=== PATIENT | female | born 1945 | race Caucasian/White ===

== ENCOUNTER 2021-11-13 05:23 | Inpatient (IN) | payer MEDICARE, MEDICAID, SELFPAY ==
[2021-11-13] VITALS (33 sets, daily range): BP systolic 97–195; BP diastolic 50–104; PULSE 64–99; RESP 10–22; TEMP 35.6–36.9; O2SAT 90–100; BMI 43.3
--- NOTE | 2021-11-13 05:24 | DI.RAD.S_ITS ---
PROCEDURE: XR HIP W PEL IF DONE RT 2V INDICATIONS: pain after fall TECHNIQUE: AP pelvis with lateral view(s) of the right hip(s). COMPARISON: None. FINDINGS: Bones: Comminuted, displaced proximal right femur intertrochanteric fracture which is in varus angulation. Patient is status post ORIF of left femur fracture. Pelvic ring appears intact. No suspicious bony lesions. Soft tissues: The visualized bowel gas pattern is normal. No suspicious soft tissue calcifications. IMPRESSION: Intertrochanteric right femur fracture. Dictated by: Isabel Kwok MD, PhD on 11/13/2021 at 9:34 Approved by: Isabel Kwok MD, PhD on 11/13/2021 at 9:35
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
[2021-11-13] MEDS: MORPHINE 4 MG/ML INJ IV (06:32)
[2021-11-13] MEDS: SODIUM CHLORIDE 0.9% 1,000 ML 125 ML IV ×3 (06:32→23:19)
[2021-11-13 06:33] LABS: Add Manual Diff / Slide Review NO; Basophils Absolute Auto 100 /uL (0-100); Basophils Percent Auto 0.6 % (0-2); Eosinophils Absolute Auto 200 /uL (0-450); Eosinophils Percent Auto 1.9 % (2-4); Hematocrit 38.7 % (36-46); Hemoglobin 12.5 g/dL (12.0-16.0); Lymphocytes Absolute Auto 1400 /uL (1100-4500); Lymphocytes Percent Auto 12.9 % (25-40); Mean Corpuscular HGB Conc 32.4 % (30-36); Mean Corpuscular Hemoglobin 25.6 PG (26-34); Mean Corpuscular Volume 78.9 fL (80-100); Monocytes Absolute Auto 600 /uL (0-900); Monocytes Percent Auto 5.8 % (3-14); Neutrophils Absolute Auto 8500 /uL (1500-7000); Neutrophils Percent Auto 78.8 % (50-75); Platelet Count 197 X10^3/uL (150-400); Red Cell Distribution Width 16.2 % (11.6-14.8); White Blood Cell Count 10.8 X10^3/uL (4.5-11.0)
[2021-11-13 06:37] LABS: INR 1.1 (0.9-1.3); Prothrombin Time 11.9 SECONDS (10.1-12.7)
[2021-11-13 06:40] LABS: PTT Partial Thromboplastin Tim 32 SECONDS (26.4-36.2)
[2021-11-13 06:47] LABS: BUN Creatinine Ratio 35.3 (6-22); Blood Urea Nitrogen 30 mg/dL (7-17); Calcium 9.8 mg/dL (8.4-10.2); Carbon Dioxide 30 mmol/L (22-32); Chloride 101 mmol/L (98-107); Estimated Glomerular Filt Rate > 60.0 mL/min (>60); Glucose 166 mg/dL (80-110); Sodium 136 mmol/L (137-145)
[2021-11-13 06:53] LABS: HEMOLYSIS 110 (0-50)
[2021-11-13 06:54] LABS: Potassium 4.6 mmol/L (3.4-5.1)
[2021-11-13] MEDS: MORPHINE 2 MG/ML INJ IV ×3 (08:17→14:18)
[2021-11-13 08:37] LABS: COVID19 -Nasal RAPID Negative (Negative)
[2021-11-13 08:49] LABS: Appearance Urine UA CLEAR; Bilirubin Urine UA NEGATIVE (NEGATIVE); Color Urine UA YELLOW; Glucose Urine UA NEGATIVE (Negative); Ketones Urine UA NEGATIVE (NEGATIVE); Leukocyte Esterase Urine UA NEGATIVE (NEGATIVE); Nitrite Urine UA NEGATIVE (Negative); Occult Blood Urine UA TRACE-INTACT (Negative); Protein Urine UA 1+ (Negative); Specific Gravity Urine UA 1.015 (1.000-1.035); Urobilinogen Urine UA 0.2 E.U./dL (0.2)
[2021-11-13 08:57] LABS: Bacteria Urine None Seen; Culture Indicated Urine Cult Not Indicated; RBC Urine 0-1/HPF (0-5/HPF); Squamous Epithelial Cell Urine 0-1 /HPF (0-5/HPF); WBC Urine 0-1/HPF (0-5/HPF)
[2021-11-13 08:59] LABS: Hemoglobin A1C% w Est Avg Glu 9.1 % (4.0-6.0)
--- NOTE | 2021-11-13 10:42 | PM.CN ---
History of Present Illness Consult details Date Patient Seen: 11/13/21 Time Patient Seen: 07:10 Chief complaint: MECHANICAL FALL Reason for consult: Ground level fall right hip fracture Requesting provider: Simone Jackson Narrative: Patient is a 76-year-old female with insulin-dependent diabetes sustained a ground level fall at home early this morning when she came out of her room was startled and fell backwards onto her right hip. She lives on the [facility] and typically gets her care at [facility] they did not have orthopedic coverage so she was brought to [facility]. Last hemoglobin A1c is 7.7. She lives at home with her who is 92 and requires his own home health assistance aids. She has been ambulating with a walker. She had a left intertrochanteric hip fracture fixed with a cephalomedullary nail in 2019 and went to rehab for short period afterwards. States she was getting ready to wean from the walker to a cane. She has no personal or family history of blood clots. She denies any shortness of breath chest pain nausea vomiting or loss of consciousness. She does state she is getting the start of the cellulitis on her left leg that she was planning to go to the walk-in clinic for. Meds Home Medications and Allergies Allergies Allergy/AdvReac Type Severity Reaction Status Date / Time No Known Drug Allergies Allergy Verified 11/13/21 09:37 Review of Systems Review of Systems Narrative: History diabetes requires insulin. Complaints of start of left leg cellulitis eye she has had previously. Denies chest pain denies shortness of breath denies history of blood clots or hypercoagulability. Review of systems otherwise negative. Does use a walker at baseline ROS: Yes All systems reviewed with the patient and are negative except as otherwise documented Exam Vital Signs (past 8 hours): - 11/13/21 05:24 11/13/21 05:32 11/13/21 06:53 Temperature 97.6 F Pulse Rate 72 74 Respiratory Rate 18 Blood Pressure 193/98 H Pulse Oximetry 98 94 96 11/13/21 06:54 11/13/21 07:00 11/13/21 07:30 Temperature Pulse Rate 94 H 90 85 Respiratory Rate 22 Blood Pressure 195/83 H 187/81 H Pulse Oximetry 96 94 96 11/13/21 07:31 11/13/21 08:00 11/13/21 08:01 Temperature Pulse Rate 90 77 82 Respiratory Rate Blood Pressure 166/79 H 155/73 H Pulse Oximetry 96 92 94 11/13/21 08:30 11/13/21 08:31 11/13/21 10:30 Temperature 97.5 F L Pulse Rate 97 H 97 H 97 H Respiratory Rate 22 16 Blood Pressure 173/90 H 151/74 H Pulse Oximetry 94 95 94 Oxygen Delivery Method Room Air Oxygen Flow Rate 0 Narrative Exam Narrative: General exam alert oriented female no acute distress BMI 43 HEENT exam normocephalic atraumatic Respiratory exam unlabored on room air. Lungs are clear to auscultation bilaterally Heart regular rate rhythm Musculoskeletal exam moves bilateral upper extremities full range of motion no tenderness to palpation. Right lower extremity is externally rotated and shortened demonstrates dorsiflexion plantar flexion. Calf and thigh are soft. Palpable dorsalis pedis pulse. Some venous stasis skin changes noted. Left lower extremity normal alignment. Venous stasis. Palpable dorsalis pedis pulse. Two venous stasis ulcerations with some erythema on the left lower extremity. Calf is soft Const General: cooperative Objective Imaging AP pelvis and right lateral hip x-ray: My impression: Right intertrochanteric hip fracture. Left hip demonstrates hardware consistent with previous fracture with cephalomedullary nail implant Labs Result Diagrams: 11/13/21 06:10 11/13/21 06:10 Labs: Laboratory Results - last 24 hr 11/13/21 11/13/21 11/13/21 06:10 06:10 06:10 WBC 10.8 RBC 4.90 Hgb 12.5 Hct 38.7 MCV 78.9 L MCH 25.6 L MCHC 32.4 RDW 16.2 H Plt Count 197 Neut % (Auto) 78.8 H Lymph % (Auto) 12.9 L [place] % (Auto) 5.8 Eos % (Auto) 1.9 L Baso % (Auto) 0.6 Neut # (Auto) 8500 H Lymph # (Auto) 1400 [place] # (Auto) 600 Eos # (Auto) 200 Baso # (Auto) 100 PT 11.9 INR 1.1 APTT 32 Sodium 136 L Potassium 4.6 Chloride 101 Carbon Dioxide 30 BUN 30 H Creatinine 0.85 Estimated GFR > 60.0 BUN/Creatinine Ratio 35.3 H Glucose 166 H Hemoglobin A1c Calcium 9.8 Urine Color Urine Appearance Urine pH Ur Specific [place] Urine Protein Urine Glucose (UA) Urine Ketones Urine Occult Blood Urine Nitrate Urine Bilirubin Urine Urobilinogen Ur Leukocyte Esterase Urine RBC Urine WBC Ur Squamous Epith Cells Urine Bacteria Ur Culture Indicated? SARS-CoV-2 (PCR) 11/13/21 11/13/21 11/13/21 06:10 07:41 08:44 WBC RBC Hgb Hct MCV MCH MCHC RDW Plt Count Neut % (Auto) Lymph % (Auto) [place] % (Auto) Eos % (Auto) Baso % (Auto) Neut # (Auto) Lymph # (Auto) [place] # (Auto) Eos # (Auto) Baso # (Auto) PT INR APTT Sodium Potassium Chloride Carbon Dioxide BUN Creatinine Estimated GFR BUN/Creatinine Ratio Glucose Hemoglobin A1c 9.1 H Calcium Urine Color Yellow Urine Appearance Clear Urine pH 7.0 Ur Specific [place] 1.015 Urine Protein 1+ H Urine Glucose (UA) Negative Urine Ketones Negative Urine Occult Blood Trace-intact Urine Nitrate Negative Urine Bilirubin Negative Urine Urobilinogen 0.2 Ur Leukocyte Esterase Negative Urine RBC 0-1/hpf Urine WBC 0-1/hpf Ur Squamous Epith Cells 0-1 /hpf Urine Bacteria None seen Ur Culture Indicated? Cult not indicated SARS-CoV-2 (PCR) Negative [facility] Medical History Hypertension Insulin dependent diabetes mellitus Neuropathy Comment: Insulin-dependent diabetes. History of left intertrochanteric hip fracture status post cephalomedullary nail 2020. Social History marital status: details: Lives at home with who is 92 and requires nursing care. lives independently: Yes caregiver/support person: No Tobacco & Substance Use Smoking Status: Never smoker substance use type: does not use Assessment & Plan Assessment and plan (1) Closed hip fracture: Status: Acute Plan Patient is a 76-year-old female with a displaced right intertrochanteric hip fracture. She has been indicated for surgery to reduce the fracture stabilize it and allow early mobilization and avoid the comorbidities associated with prolonged bed rest. The risks and benefits of the procedure have been discussed with the patient even opportunity to ask questions. The risks of surgery include but are not limited to infection, malunion, nonunion, persistence of pain, damage to nerves and blood vessels, posttraumatic arthritis, DVT, PE, cardiopulmonary complications and . The patient expressed a thorough understanding of the risks and benefits of surgery and has elected to proceed. Consent was signed. We discussed specific risks of immobility, bed sores, pneumonia, blood clots, pulmonary embolism and risks with a general anesthetic, myocardial infarction, stroke, paralysis, . We discussed blood loss anemia and possible requirements for blood transfusions depending on symptoms. Patient understands and agrees with the plan.\ Will be NPO. Plan for cephalomedullary nail right intertrochanteric hip fracture today when the OR is available. She will likely require fci placement postoperatively as she require this with the left-sided hip fracture. She will be weightbear as tolerated on her implant postoperatively. She does not have any allergies to antibiotics will get weight based Ancef preoperatively. COVID-19 COVID-19 status: Negative Result date/Date tested (Pos, Neg/Pending): 11/13/21 Time Spent With Patient Time with patient: less than 30 minutes Critical Care time: I spent a total of [] minutes of critical care time on this patient's care today; this time is exclusive of procedural time.
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
[2021-11-13] MEDS: LACTATED RINGERS 1,000 ML 42 ML IV ×2 (12:20→17:38)
[2021-11-13] MEDS: LORazepam 2 MG/ML INJ 0.5 MG IV (15:35)
[2021-11-13] MEDS: GABAPENTIN 300 MG CAPSULE PO (16:14)
[2021-11-13] MEDS: INSULIN LISPRO 100 UNIT/ML 3ML VIAL SUBCUT ×2 (16:22→18:47)
[2021-11-13] MEDS: CEFAZOLIN 2 GM/20 ML SYRINGE 3 GM IV (16:27)
[2021-11-13] MEDS: TRANEXAMIC ACID 1,000 MG VIAL 2000 MG INJ ×2 (16:29→17:49)
--- NOTE | 2021-11-13 16:44 | SUR.OPER ---
Supine on padded [place] table with bilateral legs secured in padded positioning boots and suspended in positioning spars, operative leg in traction per surgeon. Head on one pillow. Arm on non-operative side secured on padded armboard <90 degrees abduction. Arm on operative side padded and resting across chest then secured with tape over sheet. Padded perineal post in place per surgeon.
--- NOTE | 2021-11-13 17:00 | DI.RAD.S_ITS ---
PROCEDURE: XR HIP W PEL IF DONE RT 2V INDICATIONS: RIGHT HIP FX TECHNIQUE: AP pelvis with lateral view(s) of the right hip(s). COMPARISON: [facility], , XR HIP W PEL IF DONE RT 2V, 11/13/2021, 5:21. FINDINGS: Bones: ORIF of the bilateral femoral necks and shafts. Pelvic ring appears intact. No suspicious bony lesions. Soft tissues: The visualized bowel gas pattern is normal. No suspicious soft tissue calcifications. IMPRESSION: Postsurgical sequelae. Dictated by: Jude Limon M.D. on 11/13/2021 at 19:00 Approved by: Jude Limon M.D. on 11/13/2021 at 19:00
[2021-11-13] MEDS: BUPIVACAINE 0.25% (PF) 30 ML, EPINEPHrine 0.15 MG INJ (17:02)
--- NOTE | 2021-11-13 18:11 | PC.NURSE ---
Pt arrived from ED this a.m. at 1000 a.m. She is A&Ox3. Her SBP is elevated as she reports pain level elevated to RLE and R hip. Pt is given PRN morphine with minimal effect. Noted she has scattered bruising to her thighs and back. She has an abrasion covered with a bandaid to L outer gaspar, erythema surrounding. Toes are dusky brown color and she reports she has neuropathy with duller sensation and decreased circulation to bilateral lower extremities. She has a history of DM, and BG prior to noon is 169. She is NPO. LR at 42 ml/hr. Hospitalist at bedside evaluating patient, EKG completed at baseline (abnormal QRS per baseline). She is asymptomatic of palpitations, SOB or chestpain. Pt given 0.5mg ativan for c/o of leg spasms and pain with good effect. She is taken to pre op via bed at 1545.
--- NOTE | 2021-11-13 18:59 | PM.OP.1 ---
Operative Date/Time/Diagnoses Date of procedure: 11/13/21 Time of procedure: 18:59 Pre-op diagnosis: Right intertrochanteric hip fracture Morbid obesity BMI 43 Insulin-dependent diabetes Post-op diagnosis: same Procedure & Clinicians Procedure: Fixation of right intertrochanteric hip fracture with cephalomedullary nail CPT code 30432 Same procedure as scheduled: Yes Indications: Patient is a 76-year-old female with insulin-dependent diabetes that fell early this morning with a ground level fall onto her right hip she was unable to ambulate she was taken by EMS to [facility] displaced right intertrochanteric hip fracture was identified. She was admitted for surgery. She had a left intertrochanteric hip fracture fixed with a intramedullary yael in 2019 at an outside hospital. She denies any loss of consciousness shortness of breath or chest pain. She normally ambulates with a walker. She was indicated for fixation of her intertrochanteric hip fracture on the right side to reduce the comorbidities associated with prolonged immobility. The risks and benefits of the procedure have been discussed with the patient even opportunity to ask questions. The risks of surgery include but are not limited to infection, malunion, nonunion, persistence of pain, damage to nerves and blood vessels, need for transfusion, posttraumatic arthritis, DVT, PE, cardiopulmonary complications and . The patient expressed a thorough understanding of the risks and benefits of surgery and has elected to proceed. Consent was signed. Surgeon: Alberta Bonilla Click Yes if Unassisted: Yes Anesthesia Type: General Operative Notes Findings: Displaced intertrochanteric hip fracture, unstable Closure Type: primary Specimen(s): none sent Prosthetic devices, grafts, tissues, transplants, or devices: Carias and nephew inter mann nail 13mm x 18cm 110 mm lag screw and 105 mm compression screw 40 mm locking screw Estimated Blood Loss (mL): 150 Blood products transfused: none Tourniquet time (min): 0 Procedure in detail: Procedure cephalomedullary nail intertrochanteric hip fracture the CPT code 67183 Side: Right Implant Carias and Nephew 13 x 18 cm cephalomedullary nail intertan Procedure: The patient was seen and the site of surgery was marked in the preoperative area. This was the right hip. Patient was brought to the operating room and placed on the operative table and general anesthesia was administered. The patient was positioned on the fracture table in standard fashion with a well-padded boots and a padded peroneal post. An SCD was on the contralateral leg. A formal time-out was called to confirm the patient's side and site of surgery administration of preoperative antibiotics. All were in agreement. The operative leg was then gently manipulated under fluoroscopic guidance to obtain a closed reduction in near anatomic alignment. At this point the operative extremity was prepped and draped in the standard sterile manner. The starting point was marked out using fluoroscopic guidance and marked on the skin. A guidewire was placed percutaneously and the starting point was obtained. Incision was made over the guidewire. An opening drill was inserted to the level of the lesser trochanter. The opening Reamer and guidewire were then removed. Ball-tipped guidewire was used to pass distally. A 14 mm Reamer was then used in the canal. The 18 Cm cephalomedullary nail was selected. The 13 x 18 cm nail was then slid into the canal. The nail was advanced to the proper depth and rotation. The guide for the cephalomedullary screw was then inserted into the external handle. An incision was made and the guide was placed down to the bone. A guidewire was placed to the proper depth into the femoral head and this was confirmed on AP and lateral imaging. The tip apex distance was evaluated and appropriate. This was measured. Next the outer cortex was drilled for the interlocking screw and the anti rotation bar was placed. The cephalomedullary screw length was then measured off the drill again. A 110 mm lag screw was selected and the corresponding interlocking compression screw. A guidewire was then over drilled and the lag screw placed. The anti rotation bar was removed and then the locking compression screws were placed and confirmed on biplanar fluoroscopy. The integrated compression screw was tightened. Traction was released. was turned to the distal interlock. This was placed with the guide in the standard technique. AP and lateral images were captured in the or confirming alignment hardware placement. Wounds were irrigated and closed in layers with 0 Vicryl in the deep fascia. 2- 0 in the subcutaneous tissue and faby in the skin. Sterile dressings were applied. There no immediate complications. Surgical counts were correct. The patient tolerated the procedure well was taken to recovery room for formal radiographs. Postoperative plan. Weightbear as tolerated to the surgical extremity. Work with physical therapy and occupational therapy. Discharge by primary team. Likely longterm. Monitor hemoglobin and hematocrit postoperatively may require transfusion if needed. Encourage incentive spirometry. SCDs and Lovenox for DVT prophylaxis. Recommend Lovenox 4 weeks for hip fracture. Follow-up scheduled [facility] in 2 weeks for wound check and repeat x-rays. Keep dressing clean dry and intact. May change of saturated. Complications: none Post-operative Condition: stable Disposition: PACU Plan for aftercare: Weightbear as tolerated right lower extremity. Lovenox for DVT prophylaxis x4 weeks unless mobilizing well then could consider aspirin. Two doses and Ancef postop
--- NOTE | 2021-11-13 19:03 | SUR.PHASEI ---
11/13/2190-0403-Jadcphv sleepy, in no pain or distress . has harsh moist cough. suctioned orally prn. vss. oxygen at 2l nc. sats 97%. denies pain or nausea. tolerated ice chips. dressing rt hip cdi x 2 sites. 2 + Dp pulse rt foot and +motion/sensation/warmth and color pink. has color demarcations of brown on feet. nods no to any numb/tingling in toes. anesthesia here and aware of lungs sounds,cough. States expelled alot of thick mucous via suction when extubating. no resp. treatment ordered. will pass on to push pulmonary tolietring on floor. Floor recalled at 7 pm-shift change to call back for report.
--- NOTE | 2021-11-13 19:30 | SUR.PHASEI ---
11/13/20-1919-To room by bed with oxygen at 2 liters.no belongings. breathing better-no moist rhonchi heard.. met criteria. unable to give report by phone. 1924-Met RN at bedside in room and handoff report done.
[2021-11-13] MEDS: INSULIN GLARGINE 100 UNIT/ML 3ML PEN 55 UNIT SUBCUT (22:03)
[2021-11-14] VITALS (16 sets, daily range): BP systolic 120–145; BP diastolic 55–80; PULSE 92–105; RESP 15–19; TEMP 35.9–36.7; O2SAT 92–100
[2021-11-14] MEDS: CEFAZOLIN 2 GM/20 ML SYRINGE IV ×2 (00:53→08:12)
[2021-11-14] MEDS: OXYCODONE IR 5 MG TABLET PO ×4 (05:11→19:01)
[2021-11-14 05:22] LABS: Add Manual Diff / Slide Review NO; Basophils Absolute Auto 0 /uL (0-100); Basophils Percent Auto 0.5 % (0-2); Eosinophils Absolute Auto 100 /uL (0-450); Eosinophils Percent Auto 1.4 % (2-4); Hematocrit 32.5 % (36-46); Hemoglobin 10.4 g/dL (12.0-16.0); Lymphocytes Absolute Auto 1600 /uL (1100-4500); Lymphocytes Percent Auto 16.7 % (25-40); Mean Corpuscular HGB Conc 31.8 % (30-36); Mean Corpuscular Hemoglobin 25.5 PG (26-34); Monocytes Absolute Auto 900 /uL (0-900); Monocytes Percent Auto 9.9 % (3-14); Neutrophils Absolute Auto 6700 /uL (1500-7000); Neutrophils Percent Auto 71.5 % (50-75); Platelet Count 146 X10^3/uL (150-400); Red Blood Cell Count 4.07 X10^6/uL (4.0-5.2); Red Cell Distribution Width 16.3 % (11.6-14.8); White Blood Cell Count 9.4 X10^3/uL (4.5-11.0)
[2021-11-14 05:28] LABS: BUN Creatinine Ratio 28.9 (6-22); Blood Urea Nitrogen 22 mg/dL (7-17); Calcium 8.7 mg/dL (8.4-10.2); Carbon Dioxide 31 mmol/L (22-32); Chloride 105 mmol/L (98-107); Estimated Glomerular Filt Rate > 60.0 mL/min (>60); Glucose 178 mg/dL (80-110); HEMOLYSIS < 15 (0-50); Potassium 4.5 mmol/L (3.4-5.1); Sodium 137 mmol/L (137-145)
[2021-11-14 05:38] LABS: Magnesium 1.6 mg/dL (1.6-2.3)
[2021-11-14 05:59] LABS: TSH w/ Reflex to FT4 1.06 uIU/mL (0.47-4.68)
[2021-11-14] MEDS: ACETAMINOPHEN 325 MG TABLET 975 MG PO ×3 (08:11→21:00)
[2021-11-14] MEDS: ENOXAPARIN 40 MG/0.4 ML SYRINGE SUBCUT (08:12)
[2021-11-14] MEDS: DOCUSATE 100 MG CAPSULE PO ×2 (08:12→21:00)
[2021-11-14] MEDS: INSULIN LISPRO 100 UNIT/ML 3ML VIAL SUBCUT ×4 (08:13→21:07)
--- NOTE | 2021-11-14 09:29 | P.PN_ITS ---
Subjective Subjective Date Patient Seen: 11/14/21 Time Patient Seen: 09:29 Interval history: Right hip pain is mild. Denies fever or chills. No nausea or vomiting. Patient lives at home with her 92-year-old . Patient states that her has a caregiver part-time. Patient states that the caregiver for her also typically helped her out quite a bit as well. Exam Vital Signs (past 8 hours): - 11/14/21 02:12 11/14/21 03:12 11/14/21 05:26 Temperature 96.6 F L Pulse Rate 97 H 92 H Respiratory Rate 16 16 Blood Pressure 131/75 Pulse Oximetry 100 99 95 11/14/21 07:25 11/14/21 09:07 Temperature 97.6 F Pulse Rate 102 H Respiratory Rate 16 Blood Pressure 135/80 Pulse Oximetry 94 92 Oxygen Delivery Method Room Air Oxygen Flow Rate 0 Narrative Exam Narrative: 76-year-old female resting comfortably in bed in no apparent distress. Right hip dressings are Clean, dry, intact.. Motor functions intact distal bilateral lower extremities. Patient has diminished sensation to light touch bilateral lower extremities secondary to peripheral neuropathy. Objective Labs Result Diagrams: 11/14/21 04:55 11/14/21 04:55 Labs: Laboratory Results - last 24 hr 11/14/21 11/14/21 11/14/21 04:55 04:55 04:55 WBC 9.4 RBC 4.07 Hgb 10.4 L Hct 32.5 L MCV 80.0 MCH 25.5 L MCHC 31.8 RDW 16.3 H Plt Count 146 L Neut % (Auto) 71.5 Lymph % (Auto) 16.7 L [place] % (Auto) 9.9 Eos % (Auto) 1.4 L Baso % (Auto) 0.5 Neut # (Auto) 6700 Lymph # (Auto) 1600 [place] # (Auto) 900 Eos # (Auto) 100 Baso # (Auto) 0 Sodium 137 Potassium 4.5 Chloride 105 Carbon Dioxide 31 BUN 22 H Creatinine 0.76 Estimated GFR > 60.0 BUN/Creatinine Ratio 28.9 H Glucose 178 H Calcium 8.7 Magnesium 1.6 TSH 11/14/21 04:55 WBC RBC Hgb Hct MCV MCH MCHC RDW Plt Count Neut % (Auto) Lymph % (Auto) [place] % (Auto) Eos % (Auto) Baso % (Auto) Neut # (Auto) Lymph # (Auto) [place] # (Auto) Eos # (Auto) Baso # (Auto) Sodium Potassium Chloride Carbon Dioxide BUN Creatinine Estimated GFR BUN/Creatinine Ratio Glucose Calcium Magnesium TSH 1.06 [facility] Medical History Hypertension Insulin dependent diabetes mellitus Neuropathy Surgical History Status post-operative repair of closed fracture of left hip Family History Brother Diabetes mellitus Mother Diabetes mellitus Social History marital status: details: Lives at home with who is 89 and requires nursing care. household members: spouse lives independently: Yes caregiver/support person: No Smoking Status: Never smoker alcohol intake: never substance use type: does not use Assessment & Plan Post-op Postoperative Procedures: Procedures Operation Date: 11/13/21 15:45 Actual Procedure Side Surgeon p RAMSES intertrochanter hip fx Right Alberta Bonilla MD Postoperative day: 1 Postoperative status: doing well Postoperative status narrative: Stable status post fixation of right intertrochanteric hip fracture with cephalomedullary nail Postoperative plan narrative: Mobilize with physical therapy Weightbear as tolerated right lower extremity. Lovenox for DVT prophylaxis x4 weeks unless mobilizing well then could consider aspirin. Two doses and Ancef postop Disposition likely will need senior care facility. Quality VTE Deep Vein Thrombosis/Pulmonary Embolism Present on Admission: No
--- NOTE | 2021-11-14 10:36 | PT.IIE ---
Current Diagnoses Fracture of unspecified part of neck of unspecified femur, initial encounter for closed fracture (11/13/21) Surgery Performed Operation Date: 11/13/21 15:45 Actual Procedures p IMN intertrochanter hip fx(Right) - Alberta Bonilla MD Medical History (Last Reviewed 11/14/21 @ 09:30 by Jesus Ruffin PA-C) Hypertension Insulin dependent diabetes mellitus Neuropathy Physical Therapy Inpatient Evaluation/Re-Eval M1 PT/OT-IP Prior Functional Status Start: 11/14/21 13:04 Freq: NEEDED Status: Active Protocol: Document 11/14/21 10:36 AB (Rec: 11/14/21 13:15 AB [email or web address]) Medical Review Prior Functional Status Medical History Reviewed Yes Communication able to make needs known Mobility and Gait pt stated that she is modified independent with all mobilities and ambulation using 4WW Social History Household Members spouse Living Arrangements House Number of Floors (Floors) One Floor Number of Stairs To Enter/Railing? ramp to enter Home Environment Standard Height Toilet,Walk in Shower Home Equipment Four Wheel Walker,Bedside Commode,Shower Seat with Backrest,Hand Held Shower,Grab Bars In Shower Additional Social History Comment stated that her spouse has dementia and there is a caregiver that comes in to assist her spouse but when caregiver is not around, pt assists pt at home. M2 PT-IP Current Condition Start: 11/14/21 13:04 Freq: NEEDED Status: Active Protocol: Document 11/14/21 10:36 AB (Rec: 11/14/21 13:15 AB [email or web address]) Physical Therapy Current Condition Current Condition Evaluation Date 11/14/21 Treatment Diagnosis R femur fx s/p nailing; difficulty in walking Onset Date 11/13/21 M3 PT-IP Subjective Start: 11/14/21 13:04 Freq: NEEDED Status: Active Protocol: Document 11/14/21 10:36 AB (Rec: 11/14/21 13:15 AB [email or web address]) Subjective Physical Therapy Visit Type Type Initial Evaluation Visit Start Time 10:36 Visit Stop Time 11:30 Total Visit Minutes 54 Number of BRIDGE SAW OPERATOR Visits 0 Therapy Pain Assessment Pain When Pain Assessed At Rest Pain Present Pain Present Pain Reported Location Right Hip Scale Used pain scale not stated Pain Management Techniques Distraction,Modification of Treatment,Re-positioning, Timing of Activity with Medications M4 PT-IP Mobility and Gait Start: 11/14/21 13:04 Freq: NEEDED Status: Active Protocol: Document 11/14/21 10:36 AB (Rec: 11/14/21 13:15 AB [email or web address]) PT-Bed Mobility Assessment Supine to Sit Supine to Sit Maximum Assistance,2 Person Assistance,Head of Bed Elevated,Bedrails Scooting Scooting to Edge of Bed Dependent PT-Transfer Assessment Sit to and From Stand Sit to and from Stand Maximum Assistance,2 Person Assistance,Use of Upper Extremities Equipment Transfer Assistive Device Gait Belt,Front Wheeled Walker Orthotic/Prosthetic Devices or Brace: No Transfers Transfer Destination Chair Transfer Technique Stand Pivot Transfer Ability Level of Assist Maximum Assistance,2 Person Assistance,Use of Upper Extremities Comments Mobility Comments pt completed supine to sit max A x 2 and max cues with HOB elevated. pt tends to stiffen RLE making it harder to move and assist pt. Pt also has some confusion and requires repeated cues for all tasks. pt requiring mod to max for sitting on EOB. total A for scooting to EOB. completed sit to stand x 2 attempts max A x 2 and max cues. only tolerated ~ 5 sec of standing on first attempt. completed sit to stand gain max A x 2 and instructed to transfer to chair using FWW. required max A x 2 to pivot to chair using FWW. midway of transfer, pt just let go of walker and plopped herself on side of recliner. pt with decrease safety awareness. total A for positioning on chair. call light and table placed within reach. PT-Balance Assessment Sitting Balance and Reactions Static Sitting Balance Ability Fair Dynamic Sitting Balance Ability Poor Standing Balance and Reactions Static Standing Balance Ability Poor Dynamic Standing Balance Ability Poor Device Used FWW M5 PT-IP Objective Assessments Start: 11/14/21 13:04 Freq: NEEDED Status: Active Protocol: Document 11/14/21 10:36 AB (Rec: 11/14/21 13:15 AB [email or web address]) Orientation Orientation/Cognition Level of Alertness Confusional State Orientation Name Safety Awareness Decreased Safety Awareness Memory Description Short Term Impaired Gross Range of Motion Lower Extremity ROM Impairments pt with increase LE guarding with PROM Strength Lower Extremity Strength Assessment Bilaterally Impaired Comments Strength Comments RLE: 3-/5 LLE:3-/5 Coordination Assessment Gross Coordination Gross Coordination WNL Sensation Assessment Sensation Gross Sensation Right LE Impaired,Left LE Impaired Sensation Description Numbness,Tingling Comments Sensation Comments has BLE neuropathy Muscle Tone Muscle Tone WNL Yes M6 PT-IP Treatment Start: 11/14/21 13:04 Freq: NEEDED Status: Active Protocol: Document 11/14/21 10:36 AB (Rec: 11/14/21 13:15 AB [email or web address]) Physical Therapy Treatment Exercises Exercises Heel Slides Education Education Provided Weight Bearing Status,Safety M7 PT-IP Assessment and Plan Start: 11/14/21 13:04 Freq: NEEDED Status: Active Protocol: Document 11/14/21 10:36 AB (Rec: 11/14/21 13:15 AB [email or web address]) PT Summary Assessment and Plan Potential Rehabilitation Potential Fair Status of Condition at Evaluation Evolving Summary Impairments Pain,ROM,Strength,Balance, Coordination,Sensation,Tone, Cognition,Bed Mobility, Transfers,Gait,Activity Tolerance Assessment Summary pt requiring max A x 2 to total A x 2 with mobility and unable to ambulate at this time. pt also has decrease safety awareness requiring max cues with all tasks. pt will require SNF rehab to improve strength and mobility independence. Goals Bed Mobility Goal Minimal Assistance Transfer Goal Minimal Assistance,Front Wheeled Walker Gait Goal Minimal Assistance,Front Wheel Walker Gait Distance 50 Other Goals improve bed mobility , transfers SBA using FWW improve ambulation using FWW 125 ft SBA Frequency of Treatment Frequency Of Treatment Twice a Day Treatment Plan Physical Therapy Treatment Plan Bed Mobility Training,Transfer Training,Gait Training, Therapeutic Exercise,Balance Retraining,Post Op Education, Discharge Planning,Hot or Cold Pack,Neuromuscular Re-ed, Coordination Retraining,Manual Therapy Weight Bearing Status Weight Bearing Status Weight Bear as Tolerated Allowed Weight Bearing Amount (enter % RLE WBAT or #) (%) Recommendations To Nursing Amount of Assist Needed Mechanical Lift Discharge Recommendations PT Discharge Recommendations SNF Rehab Equipment Needed for Home Before FWW if pt goes home Discharge Transportation Needs at Discharge Wheelchair/Cabulance
[2021-11-14] MEDS: MAGNESIUM CHLORIDE 64 MG TABLET 128 MG PO (10:46)
[2021-11-14] MEDS: OXYCODONE IR 5 MG TABLET 10 MG PO (10:48)
--- NOTE | 2021-11-14 11:54 | PM.PN.1 ---
Subjective Subjective Date Patient Seen: 11/14/21 Time Patient Seen: 11:54 Interval history: Pain is mild, worse with movement today. Denies chest pain, nausea, vomiting. No shortness of breath. Difficult time today with PT, jossy lift only today. Exam Vital Signs (past 8 hours): - 11/14/21 05:26 11/14/21 07:00 11/14/21 07:25 Temperature 97.6 F Pulse Rate 92 H 102 H Respiratory Rate 16 16 Blood Pressure 135/80 Pulse Oximetry 95 93 94 11/14/21 09:07 11/14/21 11:00 Temperature Pulse Rate Respiratory Rate Blood Pressure Pulse Oximetry 92 93 Oxygen Delivery Method Room Air Oxygen Flow Rate 0 Narrative Exam Narrative: GENERAL APPEARANCE: Well developed, well nourished, obese female in no acute distress. SKIN: Inspection of the skin reveals mild venous stasis disease in lower extremity, there is a bandaged area of her left leg that is chronic, without appearance of active infection. HEENT:? Normocephalic atraumatic, extraocular muscles are intact, oropharynx is clear and mucous membranes are moist, neck is supple without adenopathy NECK: Supple and symmetric. There was no thyroid enlargement, and no tenderness, or masses were felt. CHEST: Normal AP diameter and normal contour without any kyphoscoliosis.? Chest rises equal bilaterally. LUNGS: Auscultation of the lungs revealed no wheezes, rhonchi, or rales. CARDIOVASCULAR: There was a regular rate and rhythm without any murmurs, gallops, rubs. Peripheral pulses were 2+ and symmetric. ABDOMEN:? Soft, nontender, and nondistended. MUSCULOSKELETAL:? Right hip appropriately tender, dressing c/d/i. No joint effusions apparent. EXTREMITIES: No cyanosis, clubbing. NEUROLOGIC: Alert and oriented x 3. Normal affect. Slightly groggy after morphine. Strength not assessed due to pain. Reports bilateral neuropathy in lower extremities, but can feel light touch. Objective Labs Result Diagrams: 11/14/21 04:55 11/14/21 04:55 Labs: Laboratory Results - last 24 hr 11/14/21 11/14/21 11/14/21 04:55 04:55 04:55 WBC 9.4 RBC 4.07 Hgb 10.4 L Hct 32.5 L MCV 80.0 MCH 25.5 L MCHC 31.8 RDW 16.3 H Plt Count 146 L Neut % (Auto) 71.5 Lymph % (Auto) 16.7 L [place] % (Auto) 9.9 Eos % (Auto) 1.4 L Baso % (Auto) 0.5 Neut # (Auto) 6700 Lymph # (Auto) 1600 [place] # (Auto) 900 Eos # (Auto) 100 Baso # (Auto) 0 Sodium 137 Potassium 4.5 Chloride 105 Carbon Dioxide 31 BUN 22 H Creatinine 0.76 Estimated GFR > 60.0 BUN/Creatinine Ratio 28.9 H Glucose 178 H Calcium 8.7 Magnesium 1.6 TSH 11/14/21 04:55 WBC RBC Hgb Hct MCV MCH MCHC RDW Plt Count Neut % (Auto) Lymph % (Auto) [place] % (Auto) Eos % (Auto) Baso % (Auto) Neut # (Auto) Lymph # (Auto) [place] # (Auto) Eos # (Auto) Baso # (Auto) Sodium Potassium Chloride Carbon Dioxide BUN Creatinine Estimated GFR BUN/Creatinine Ratio Glucose Calcium Magnesium TSH 1.06 [facility] Medical History Hypertension Insulin dependent diabetes mellitus Neuropathy Surgical History Status post-operative repair of closed fracture of left hip Family History Brother Diabetes mellitus Mother Diabetes mellitus Social History marital status: details: Lives at home with who is 92 and requires nursing care. household members: spouse lives independently: Yes caregiver/support person: No Smoking Status: Never smoker alcohol intake: never substance use type: does not use Assessment & Plan Assessment & Plan narrative: 1. Pathologic right intertrochanteric femur fracture, acute, present on admission ?- appreciate orthopedic surgery consultation. S/p repair on 11/13/21. ?- PT / OT and pain control after surgery. 2. Type 2 diabetes, chronic, with insulin use ?- increased lantus to 60 from 55 tonight. Glucose generally around 180. Holding victoza as inpatient. ?- A1c 9%. Patient reports recently was 7.7%. ?- diabetic diet, consider post acute care nurse consultation 3. History of tachyarrhythmia ?- continue telemetry. No events thus far. 4. Hyperlipidemia ?- continue statin. 5. Chronic venous stasis 6. Obesity, BMI 43.3 ?- places patient at higher risk of surgical complications. Code: Full, surrogate decision maker she states is her son Dispo: Admitted as inpatient, likely SNF on discharge. DVT: per surgical service after OR. currently on hold COVID-19 COVID-19 status: Negative Time Spent With Patient Critical Care time: I spent a total of [] minutes of critical care time on this patient's care today; this time is exclusive of procedural time. Quality VTE Deep Vein Thrombosis/Pulmonary Embolism Present on Admission: No
[2021-11-14] MEDS: SODIUM CHLORIDE 0.9% 1,000 ML 80 ML IV (12:07)
--- NOTE | 2021-11-14 14:45 | PT.IPTN ---
Current Diagnoses Fracture of unspecified part of neck of unspecified femur, initial encounter for closed fracture (11/13/21) Surgery Performed Operation Date: 11/13/21 15:45 Actual Procedures p IMN intertrochanter hip fx(Right) - Alberta Bonilla MD Physical Therapy Treatment Note M2 PT-IP Current Condition Start: 11/14/21 13:04 Freq: NEEDED Status: Active Protocol: Document 11/14/21 10:36 AB (Rec: 11/14/21 13:15 AB [id number]) Physical Therapy Current Condition Current Condition Evaluation Date 11/14/21 Treatment Diagnosis R femur fx s/p nailing; difficulty in walking Onset Date 11/13/21 M3 PT-IP Subjective Start: 11/14/21 13:04 Freq: NEEDED Status: Active Protocol: Document 11/14/21 14:45 AB (Rec: 11/14/21 15:55 AB [email or web address]) Subjective Physical Therapy Visit Type Type Treatment Note Visit Start Time 14:45 Visit Stop Time 15:30 Total Visit Minutes 45 Number of ARMOURED CAR ESCORT Visits 0 Physical Therapy Visit Comments Patient Comments pt is requesting to go back to bed Therapy Pain Assessment Pain When Pain Assessed During Mobility Pain Present Pain Present Pain Reported Location Right Hip Scale Used pain scale not stated Pain Management Techniques Distraction,Modification of Treatment,Re-positioning, Timing of Activity with Medications M4 PT-IP Mobility and Gait Start: 11/14/21 13:04 Freq: NEEDED Status: Active Protocol: Document 11/14/21 14:45 AB (Rec: 11/14/21 15:55 AB [id number]) PT-Bed Mobility Assessment Rolling Level of Assist Maximal Assistance,2 Person Assistance Sit to Supine Sit to Supine Maximum Assistance,Total Assistance,2 Person Assistance PT-Transfer Assessment Sit to and From Stand Sit to and from Stand Maximum Assistance,2 Person Assistance,Use of Upper Extremities Equipment Transfer Assistive Device Front Wheeled Walker Orthotic/Prosthetic Devices or Brace: No Transfers Transfer Destination Bed Transfer Technique Squat Pivot Transfer Ability Level of Assist Maximum Assistance,2 Person Assistance,Use of Upper Extremities Comments Mobility Comments pt sitting on chair. requesting to go back to bed. completed sit to stand from chair max A x 2-3 requiring 2 attempts to stand. max A x 2 for standing balance using FWW . R knee tends to buckle requiring assist for stability . cued for quads sets but pt inconsistent with following directions. instructed to transfer to bed but pt unable to move LE. pt stated that she needs to sit down. max A x 2-3 for controlled descent. completed squat pivot transfer max A x 3 and max cues. max A x 2 to total A x 2 for sit to supine. positioned pt in bed. call light and table placed within reach. M5 PT-IP Objective Assessments Start: 11/14/21 13:04 Freq: NEEDED Status: Active Protocol: Document 11/14/21 10:36 AB (Rec: 11/14/21 13:15 AB [id number]) Orientation Orientation/Cognition Level of Alertness Confusional State Orientation Name Safety Awareness Decreased Safety Awareness Memory Description Short Term Impaired Gross Range of Motion Lower Extremity ROM Impairments pt with increase LE guarding with PROM Strength Lower Extremity Strength Assessment Bilaterally Impaired Comments Strength Comments RLE: 3-/5 LLE:3-/5 Coordination Assessment Gross Coordination Gross Coordination WNL Sensation Assessment Sensation Gross Sensation Right LE Impaired,Left LE Impaired Sensation Description Numbness,Tingling Comments Sensation Comments has BLE neuropathy Muscle Tone Muscle Tone WNL Yes M6 PT-IP Treatment Start: 11/14/21 13:04 Freq: NEEDED Status: Active Protocol: Document 11/14/21 14:45 AB (Rec: 11/14/21 15:55 AB [email or web address]) Physical Therapy Treatment Education Education Provided Safety M7 PT-IP Assessment and Plan Start: 11/14/21 13:04 Freq: NEEDED Status: Active Protocol: Document 11/14/21 14:45 AB (Rec: 11/14/21 15:[email or web address] Summary Assessment and Plan Potential Rehabilitation Potential Fair Summary Impairments Pain,ROM,Strength,Balance, Coordination,Sensation,Tone, Cognition,Bed Mobility, Transfers,Gait,Activity Tolerance Assessment Summary pt requiring max A x 2-3 to total A with mobility and has difficulty moving BLE to transfer or pivot. Recommending jossy lift transfers with nursing. will continue to work on strength, standing balance/tolerance and mobility. pt will require SNF rehab to improve functional mobility. Goals Bed Mobility Goal Minimal Assistance Transfer Goal Minimal Assistance,Front Wheeled Walker Gait Goal Minimal Assistance,Front Wheel Walker Gait Distance 50 Other Goals improve bed mobility , transfers SBA using FWW improve ambulation using FWW 125 ft SBA Frequency of Treatment Frequency Of Treatment Twice a Day Treatment Plan Physical Therapy Treatment Plan Bed Mobility Training,Transfer Training,Gait Training, Therapeutic Exercise,Balance Retraining,Post Op Education, Discharge Planning,Hot or Cold Pack,Neuromuscular Re-ed, Coordination Retraining,Manual Therapy Weight Bearing Status Weight Bearing Status Weight Bear as Tolerated Allowed Weight Bearing Amount (enter % RLE WBAT or #) (%) Recommendations To Nursing Amount of Assist Needed Mechanical Lift Discharge Recommendations PT Discharge Recommendations SNF Rehab Equipment Needed for Home Before FWW if pt goes home Discharge Transportation Needs at Discharge Wheelchair/Cabulance
--- NOTE | 2021-11-14 15:13 | CM.DANOTE ---
Patient is a 76 yo female who was admitted on 11/13/21 for GLF/hip fx. Pt has [facility] and [facility] for insurance and her PCP is not listed. EMR was reviewed. Per MD, pt with hx of diabetes and neuropathy and had GLF with R femoral neck fx. Per Ortho MD, pt had surgical intervention last night for her hip fx and tolerated well but anticipate SNF at d/c. Per PT, pt currently maxA and recommending SNF at d/c. OT ordered and pending. SW met bedside with pt and explained role and pt confirms that she lives in [facility] with her 91 yo spouse who has advanced dementia and they have a roommate who assists pt and spouse but is not paid caregiver but his assist goes towards his room and board. Pt states that her spouse also has [facility] CG who is very helpful but pt has additional MARIA R hours that he is not getting as there is not another available CG to work those hours. Pt is independent at baseline and does not use DME for ambulation and confirms that she has a hx of another fall a couple years ago and went to [facility] in [facility] due to bed shortage and felt that she received great care there and this would be her SNF preference but aware it may depend more on SNF bed availability. Pt confirms that she had HH after [facility] SNF before and felt they would be needed again. Pt confirms that she will need SNF prior to d/c home and has been speaking with her son and also Caregivers to have assist for spouse at home. SW called [facility] SNF in [facility] and left [facility] requesting review and faxed initial clinicals to review. SW called [facility] who confirms they are still on stop placement and may know more on Tuesday but requested no new referrals this weekend but to check in Tuesday. SW also faxed [facility] and [facility]. [facility] and [facility] are currently full. PASRR completed. Pt fully COVID vaccinated and copy of COVID vax printed. Plan: SW to follow closely for additional SNF referrals and f/u with those reviewing to determine SNF acceptance when pt stable for d/c. Pt will need updated COVID swab closer to d/c. 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 No Advance Directives on File No History Provided By Patient,Medical Record Has Patient been admitted in last 30 No days? Prior Living Arrangements House Household Members spouse,other Comment Home with demented spouse and roommate, also has MARIA [facility] CG Type of transporation used prior to Drives own vehicle admit Independent with ADL's Yes Is patient alert and oriented? Yes Caregiver for Another Yes: demented spouse DME Already Rented / Owned Elevated Toilet Seat,Bedside Commode Patient/Family Preference Alf Facility Barriers to Discharge No Discharge Plan Alf Facility Transportation Arrangement Pending which SNF facility can accept Referrals Initiated Alf If patient plan is SNF: Has PASSR been Yes completed? Medicare Choice List Provided Yes SNF/HH Preference [facility] as pt has been there before, but agreeable likely to any that can accept Has Agency SNF been contacted Yes Whiteboard Updated in Patient Room with Yes name and ext. # of [employer] Review Status In Process Please Provide Date Initial DC 11/14/21 Assessment Was Performed Next Review Type Continued Stay Review
--- NOTE | 2021-11-14 16:19 | PC.NURSE ---
Assuming care of patient this afternoon, patient currently resting in bed. States she is tired after working with Physical therapy today. Dressing to right hip CDI, patient able to do ankle waves and begin to lift her right leg up off the bed but unable to move fully at this time. Palpable pedal pulse, denies numbness or tingling. Garcia in place draining clear yellow urine. Denies pain at rest at this time. Bed alarm on for safety. Call light within reach.
[2021-11-14] MEDS: INSULIN GLARGINE 100 UNIT/ML 3ML PEN 60 UNIT SUBCUT (21:05)
[2021-11-15] VITALS (9 sets, daily range): BP systolic 130–152; BP diastolic 62–86; PULSE 78–105; RESP 16–20; TEMP 36.2–36.9; O2SAT 95–98
[2021-11-15] MEDS: dilTIAZem CD 120 MG CAP PO ×2 (02:42→08:10)
[2021-11-15] MEDS: METOPROLOL ER 50 MG TABLET PO ×3 (02:42→20:00)
--- NOTE | 2021-11-15 03:05 | PC.NURSE ---
Patient in afib, heart rate elevated to 140's- 150's for approximately 10 minutes. Reports feeling warm and shortness of breath stating that her chest feels tired. Denies pain. BP 134/65, R 20, O2 98% 1L. HR down to 105 after 10 minutes, patient reports feeling better. Denies shortness of breath. Dr. Matthews notified and ordered Diltiazem and metoprolol. Medications given as ordered. Patient sleeping at this time.
[2021-11-15] MEDS: OXYCODONE IR 5 MG TABLET PO ×2 (05:15→13:10)
[2021-11-15 06:42] LABS: Magnesium 1.8 mg/dL (1.6-2.3)
[2021-11-15] MEDS: ENOXAPARIN 40 MG/0.4 ML SYRINGE SUBCUT ×2 (08:04→20:00)
[2021-11-15] MEDS: ACETAMINOPHEN 325 MG TABLET 975 MG PO ×3 (08:05→19:59)
[2021-11-15] MEDS: INSULIN LISPRO 100 UNIT/ML 3ML VIAL SUBCUT ×4 (08:06→21:25)
[2021-11-15] MEDS: DOCUSATE 100 MG CAPSULE PO ×2 (08:06→20:00)
[2021-11-15 08:20] LABS: BUN Creatinine Ratio 26.3 (6-22); Blood Urea Nitrogen 21 mg/dL (7-17); Calcium 8.6 mg/dL (8.4-10.2); Carbon Dioxide 27 mmol/L (22-32); Chloride 105 mmol/L (98-107); Estimated Glomerular Filt Rate > 60.0 mL/min (>60); Glucose 248 mg/dL (80-110); HEMOLYSIS < 15 (0-50); Sodium 135 mmol/L (137-145)
[2021-11-15 08:32] LABS: Troponin I 0.044 ng/mL (0.01-0.034)
--- NOTE | 2021-11-15 10:59 | PM.PNPO.1 ---
Subjective Subjective Date Patient Seen: 11/15/21 Time Patient Seen: 10:20 Interval history: She notes persistent problems with her right hip. She also notes some moderate weakness into her left hip. She spent 2 months at rehab in telling him after her left hip ORIF a few years ago. Exam Vital Signs (past 8 hours): - 11/15/21 03:00 11/15/21 05:32 11/15/21 06:23 Temperature Pulse Rate 102 H 78 Respiratory Rate 18 Blood Pressure 132/62 Pulse Oximetry 98 96 11/15/21 06:28 Temperature 97.2 F L Pulse Rate 103 H Respiratory Rate 18 Blood Pressure 130/76 Pulse Oximetry 97 Oxygen Delivery Method Nasal Cannula Oxygen Flow Rate 1 Narrative Exam Narrative: She is resting comfortably in bed she has moderate to severe pain with gentle range of motion in the right hip, she does have some weakness in the left leg and decreased range of motion in the left hip, her calfs are soft is a dressing on her left leg she does have bilateral lower extremity lymphedema Objective Labs Result Diagrams: 11/14/21 04:55 11/15/21 06:15 Labs: Laboratory Results - last 24 hr 11/15/21 11/15/21 06:15 06:15 Sodium 135 L Potassium 4.0 Chloride 105 Carbon Dioxide 27 BUN 21 H Creatinine 0.80 Estimated GFR > 60.0 BUN/Creatinine Ratio 26.3 H Glucose 248 H Calcium 8.6 Magnesium 1.8 Troponin I 0.044 H [facility] Medical History Hypertension Insulin dependent diabetes mellitus Neuropathy Surgical History Status post-operative repair of closed fracture of left hip Family History Brother Diabetes mellitus Mother Diabetes mellitus Social History marital status: details: Lives at home with who is 92 and requires nursing care. household members: spouse and other lives independently: Yes caregiver/support person: No Smoking Status: Never smoker alcohol intake: never substance use type: does not use Assessment & Plan Post-op Postoperative Procedures: Procedures Operation Date: 11/13/21 15:45 Actual Procedure Side Surgeon p IMN intertrochanter hip fx Right Alberta Bonilla MD Postoperative day: 2 Postoperative status: marginal pain control Postoperative status narrative: She is stable postoperatively but has significant mobility issues and fairly substantial right hip pain Postoperative plan: routine post-op care Postoperative plan narrative: Stable postoperatively. She spent several months in rehab after her left intertrochanteric hip fracture and has very wrist limited help at home. I anticipate she likely will need discharge to rehab. Time Spent With Patient Time with patient: less than 15 minutes Quality VTE Deep Vein Thrombosis/Pulmonary Embolism Present on Admission: No
--- NOTE | 2021-11-15 11:25 | PT.IPTN ---
Current Diagnoses Fracture of unspecified part of neck of unspecified femur, initial encounter for closed fracture (11/13/21) Surgery Performed Operation Date: 11/13/21 15:45 Actual Procedures p IMN intertrochanter hip fx(Right) - Alberta Bonilla MD Physical Therapy Treatment Note M2 PT-IP Current Condition Start: 11/14/21 13:04 Freq: NEEDED Status: Active Protocol: Document 11/14/21 10:36 AB (Rec: 11/14/21 13:15 AB [id number]) Physical Therapy Current Condition Current Condition Evaluation Date 11/14/21 Treatment Diagnosis R femur fx s/p nailing; difficulty in walking Onset Date 11/13/21 M3 PT-IP Subjective Start: 11/14/21 13:04 Freq: NEEDED Status: Active Protocol: Document 11/15/21 10:05 KS (Rec: 11/15/21 11:45 KS [id number]) Subjective Physical Therapy Visit Type Type Treatment Note Visit Start Time 10:05 Visit Stop Time 11:25 Total Visit Minutes 47 Notes Splite treatment 10:05-10:37, 11:10-11:25 LOW ALTITUDE [employer] DEF[employer] OFFICER and RN present for assistance Number of ARCHITECTURAL ASSOCIATE Visits 1 Physical Therapy Visit Comments Patient Comments Pt requesting to use BSC and then go to chair. Therapy Pain Assessment Pain When Pain Assessed During Mobility Pain Present Pain Present Pain Reported M4 PT-IP Mobility and Gait Start: 11/14/21 13:04 Freq: NEEDED Status: Active Protocol: Document 11/15/21 10:05 KS (Rec: 11/15/21 11:45 KS [id number]) PT-Bed Mobility Assessment Supine to Sit Supine to Sit Maximum Assistance,1 Person Assistance,Head of Bed Elevated,Bedrails Scooting Scooting to Edge of Bed Dependent PT-Transfer Assessment Sit to and From Stand Sit to and from Stand Maximum Assistance,2 Person Assistance,Use of Upper Extremities Equipment Transfer Assistive Device Gait Belt,Front Wheeled Walker Orthotic/Prosthetic Devices or Brace: No Transfers Transfer Destination Chair,Bedside Commode Transfer Technique Stand Step Pivot Transfer Ability Level of Assist Maximum Assistance,2 Person Assistance,Use of Upper Extremities Comments Mobility Comments Pt in bed upon arrival and agreeable to transfer to BS to attempt bowel movement. Max A x1 w/ HOB highly elevated and max cues for sup<>sit. Pt required max cues and increased time and encouragement to perform all tasks. She was able to maintain seated balance at the EOB ~5 min and LOW [employer]IT[employer]DE [employer] DEF[employer] OFFICER arrived to assist w/ transfer. Pt unable to stand w/ Max A x2 and RN arrived for additional assistance. Pt sit<>stand Max A x2-3 and performed stand step pivot to BSC Max A x2 and max verbal and tactile cues for sequencing, FWW use, and steps. Max A x2 for slow descent into BSC. Upon arrival back to room, pt performed sit<>stand Max A x3 w/ very heavy encouragement to peform and transferred stand step pivot to chair Max A x2-3 again w/ verbal and tactile cues and FWW management. Pt left in chair w/ all needs in reach. Gait Assessment Gait Gait Assistance Required: Maximum Assistance,2 Person Assist Comments Gait Comments Stand step pivot only. PT-Balance Assessment Sitting Balance and Reactions Static Sitting Balance Ability Fair Dynamic Sitting Balance Ability Poor Standing Balance and Reactions Static Standing Balance Ability Poor Dynamic Standing Balance Ability Poor Device Used FWW M5 PT-IP Objective Assessments Start: 11/14/21 13:04 Freq: NEEDED Status: Active Protocol: Document 11/14/21 10:36 AB (Rec: 11/14/21 13:15 AB [id number]) Orientation Orientation/Cognition Level of Alertness Confusional State Orientation Name Safety Awareness Decreased Safety Awareness Memory Description Short Term Impaired Gross Range of Motion Lower Extremity ROM Impairments pt with increase LE guarding with PROM Strength Lower Extremity Strength Assessment Bilaterally Impaired Comments Strength Comments RLE: 3-/5 LLE:3-/5 Coordination Assessment Gross Coordination Gross Coordination WNL Sensation Assessment Sensation Gross Sensation Right LE Impaired,Left LE Impaired Sensation Description Numbness,Tingling Comments Sensation Comments has BLE neuropathy Muscle Tone Muscle Tone WNL Yes M6 PT-IP Treatment Start: 11/14/21 13:04 Freq: NEEDED Status: Active Protocol: Document 11/15/21 10:05 KS (Rec: 11/15/21 11:45 KS [id number]) Physical Therapy Treatment Education Education Provided Safety M7 PT-IP Assessment and Plan Start: 11/14/21 13:04 Freq: NEEDED Status: Active Protocol: Document 11/15/21 10:05 KS (Rec: 11/15/21 11:45 KS [id number]) PT Summary Assessment and Plan Potential Rehabilitation Potential Fair Summary Impairments Pain,ROM,Strength,Balance, Coordination,Sensation,Tone, Cognition,Bed Mobility, Transfers,Gait,Activity Tolerance Assessment Summary Pt continues to require Max A x2-3 for mobility and transfers as well as increased time, heavy encouragement, and frequent verbal and tactile cues for sequencing and FWW management. Pt limited by weakness, pain, low tolerance for activity, and fearfulness. She will require SNF to improve functional mobility. Goals Bed Mobility Goal Minimal Assistance Transfer Goal Minimal Assistance,Front Wheeled Walker Gait Goal Minimal Assistance,Front Wheel Walker Gait Distance 50 Other Goals improve bed mobility , transfers SBA using FWW improve ambulation using FWW 125 ft SBA Frequency of Treatment Frequency Of Treatment Twice a Day Treatment Plan Physical Therapy Treatment Plan Bed Mobility Training,Transfer Training,Gait Training, Therapeutic Exercise,Balance Retraining,Post Op Education, Discharge Planning,Hot or Cold Pack,Neuromuscular Re-ed, Coordination Retraining,Manual Therapy Weight Bearing Status Weight Bearing Status Weight Bear as Tolerated Allowed Weight Bearing Amount (enter % RLE WBAT or #) (%) Recommendations To Nursing Amount of Assist Needed Mechanical Lift Discharge Recommendations PT Discharge Recommendations SNF Rehab Equipment Needed for Home Before FWW if pt goes home Discharge Transportation Needs at Discharge Wheelchair/Cabulance
[2021-11-15] MEDS: polyethylene glycoL 3350 17 GM POWD.PACK PO (13:06)
[2021-11-15] MEDS: FLUoxetine 20 MG CAPSULE 40 MG PO (13:06)
[2021-11-15] MEDS: MAGNESIUM OXIDE 400 MG TABLET PO (13:06)
[2021-11-15 14:23] LABS: Troponin I 0.037 ng/mL (0.01-0.034)
--- NOTE | 2021-11-15 15:05 | PT.IPTN ---
Current Diagnoses Fracture of unspecified part of neck of unspecified femur, initial encounter for closed fracture (11/13/21) Surgery Performed Operation Date: 11/13/21 15:45 Actual Procedures p IMN intertrochanter hip fx(Right) - Alberta Bonilla MD Physical Therapy Treatment Note M2 PT-IP Current Condition Start: 11/14/21 13:04 Freq: NEEDED Status: Active Protocol: Document 11/14/21 10:36 AB (Rec: 11/14/21 13:15 AB [id number]) Physical Therapy Current Condition Current Condition Evaluation Date 11/14/21 Treatment Diagnosis R femur fx s/p nailing; difficulty in walking Onset Date 11/13/21 M3 PT-IP Subjective Start: 11/14/21 13:04 Freq: NEEDED Status: Active Protocol: Document 11/15/21 14:37 AW (Rec: 11/15/21 15:05 AW [id number]) Subjective Physical Therapy Visit Type Type Treatment Note Visit Start Time 14:08 Visit Stop Time 14:37 Total Visit Minutes 29 Notes Pt is up in the chair, has been pre-medicated, and is interested in getting back to bed. RN present to assist. Number of WEED CONTROLLER Visits 0 Physical Therapy Visit Comments Patient Comments Pt requires encouragement but is interested in returning to bed. Therapy Pain Assessment Pain When Pain Assessed During Mobility Pain Present Pain Present Pain Reported Location Right Hip Scale Used not quantified Pain Management Techniques Distraction,Modification of Treatment,Re-positioning, Timing of Activity with Medications M4 PT-IP Mobility and Gait Start: 11/14/21 13:04 Freq: NEEDED Status: Active Protocol: Document 11/15/21 14:37 AW (Rec: 11/15/21 15:05 AW [id number]) PT-Bed Mobility Assessment Rolling Level of Assist Maximal Assistance,2 Person Assistance Sit to Supine Sit to Supine Maximum Assistance,Total Assistance,2 Person Assistance Scooting Scooting to Edge of Bed Dependent Scooting Up and Down in Bed Maximum Assistance PT-Transfer Assessment Sit to and From Stand Sit to and from Stand Maximum Assistance,2 Person Assistance,Use of Upper Extremities Equipment Transfer Assistive Device Gait Belt,Front Wheeled Walker Orthotic/Prosthetic Devices or Brace: No Transfers Transfer Destination Bed Transfer Ability Level of Assist Maximum Assistance,2 Person Assistance,Use of Upper Extremities Comments Mobility Comments Pt was sitting up in the chair as PT arrived. Agreed to get up but required extensive encouragement at every step. Right hip rests in internal rotation and pt does not tolerate attempts at repositioning. She attempted to scoot forward on the chair but required PT assist with use of draw sheet to scoot. Pt perseverated on hand placement and needed constant feedback to remain on task. PT positioned left foot near the chair, and placed hands on the chair arms. Pt ultimately stood from the chair with max A x 2 and was able to extend her hips. PT stood on the right side and provided constant tactile cues for quad activation, FWW management, and weight shifting. Pt was impulsive and attempted to sit before lined up with the bed. PT moved bed closer before pt sat. She landed near the edge of the bed and needed cues and assist to scoot her hips back on the bed. She was able to follow cues to transition to left sidelying with max A x 2. She rolled on to her back and attempted to pull herself up with the bedrails. With max cues, max A x 2, and bed in trendelenberg, pt scooted toward HOB. She needed max A x 2 to roll side to side while PT and RN straightened the draw pad underneath her. Pt was left with RN attending. Gait Assessment Gait Gait Assistance Required: Maximum Assistance,2 Person Assist Comments Gait Comments Stand step pivot only. PT-Balance Assessment Sitting Balance and Reactions Static Sitting Balance Ability Fair Dynamic Sitting Balance Ability Poor Standing Balance and Reactions Static Standing Balance Ability Poor Dynamic Standing Balance Ability Poor Device Used FWW M5 PT-IP Objective Assessments Start: 11/14/21 13:04 Freq: NEEDED Status: Active Protocol: Document 11/14/21 10:36 AB (Rec: 11/14/21 13:15 [id number]) Orientation Orientation/Cognition Level of Alertness Confusional State Orientation Name Safety Awareness Decreased Safety Awareness Memory Description Short Term Impaired Gross Range of Motion Lower Extremity ROM Impairments pt with increase LE guarding with PROM Strength Lower Extremity Strength Assessment Bilaterally Impaired Comments Strength Comments RLE: 3-/5 LLE:3-/5 Coordination Assessment Gross Coordination Gross Coordination WNL Sensation Assessment Sensation Gross Sensation Right LE Impaired,Left LE Impaired Sensation Description Numbness,Tingling Comments Sensation Comments has BLE neuropathy Muscle Tone Muscle Tone WNL Yes M6 PT-IP Treatment Start: 11/14/21 13:04 Freq: NEEDED Status: Active Protocol: Document 11/15/21 14:37 AW (Rec: 11/15/21 15:05 AW [id number]) Physical Therapy Treatment Education Education Provided Safety Other Treatments Other Treatment Performed Continued to educate pt on importance of continued mobility/risks of immobility. M7 PT-IP Assessment and Plan Start: 11/14/21 13:04 Freq: NEEDED Status: Active Protocol: Document 11/15/21 14:37 AW (Rec: 11/15/21 15:05 AW [id number]) PT Summary Assessment and Plan Summary Impairments Pain,ROM,Strength,Balance, Coordination,Sensation,Tone, Cognition,Bed Mobility, Transfers,Gait,Activity Tolerance Progress Towards Goals Slow Progress due to Pain,Slow Progress due to Activity Tolerance,Slow Progress - Other Assessment Summary Pt is highly anxious which contributes to her need for increased assist with mobility . PT provided wide FWW and much encouragement for pt to continue moving. Pt required max assist x 2 for sit to stand, transfer with FWW, and bed mobility. She will require SNF to improve functional mobility. Goals Bed Mobility Goal Minimal Assistance Transfer Goal Minimal Assistance,Front Wheeled Walker Gait Goal Minimal Assistance,Front Wheel Walker Gait Distance 50 Other Goals improve bed mobility , transfers SBA using FWW improve ambulation using FWW 125 ft SBA Frequency of Treatment Frequency Of Treatment Twice a Day Treatment Plan Physical Therapy Treatment Plan Bed Mobility Training,Transfer Training,Gait Training, Therapeutic Exercise,Balance Retraining,Post Op Education, Discharge Planning,Hot or Cold Pack,Neuromuscular Re-ed, Coordination Retraining,Manual Therapy Weight Bearing Status Weight Bearing Status Weight Bear as Tolerated Allowed Weight Bearing Amount (enter % RLE WBAT or #) (%) Recommendations To Nursing Amount of Assist Needed Mechanical Lift Discharge Recommendations PT Discharge Recommendations SNF Rehab Equipment Needed for Home Before FWW if pt goes home Discharge Transportation Needs at Discharge Wheelchair/Cabulance
[2021-11-15] MEDS: OXYCODONE IR 5 MG TABLET 10 MG PO ×2 (17:02→21:25)
--- NOTE | 2021-11-15 17:04 | PM.PN.1 ---
Subjective Subjective Date Patient Seen: 11/15/21 Time Patient Seen: 17:07 Interval history: Pain is mild, worse with movement today. Denies chest pain, nausea, vomiting. No shortness of breath. Did have a prolonged SVT overnight, home medications were restarted and troponin was checked this AM and was mildly elevated, patient asymptomatic this AM and during episode. Troponin downtrended later in the day. Exam Vital Signs (past 8 hours): - 11/15/21 11:00 Temperature 97.8 F Pulse Rate 105 H Respiratory Rate 16 Blood Pressure 137/76 Pulse Oximetry 98 Oxygen Delivery Method Nasal Cannula Oxygen Flow Rate 0 Narrative Exam Narrative: GENERAL APPEARANCE: Well developed, well nourished, obese female in no acute distress. SKIN: Inspection of the skin reveals mild venous stasis disease in lower extremity, there is a bandaged area of her left leg that is chronic, without appearance of active infection. HEENT:? Normocephalic atraumatic, extraocular muscles are intact, oropharynx is clear and mucous membranes are moist, neck is supple without adenopathy NECK: Supple and symmetric. There was no thyroid enlargement, and no tenderness, or masses were felt. CHEST: Normal AP diameter and normal contour without any kyphoscoliosis.? Chest rises equal bilaterally. LUNGS: Auscultation of the lungs revealed no wheezes, rhonchi, or rales. CARDIOVASCULAR: There was a regular rate and rhythm without any murmurs, gallops, rubs. Peripheral pulses were 2+ and symmetric. ABDOMEN:? Soft, nontender, and nondistended. MUSCULOSKELETAL:? Right hip appropriately tender, dressing c/d/i. No joint effusions apparent. EXTREMITIES: No cyanosis, clubbing. NEUROLOGIC: Alert and oriented x 3. Normal affect. Slightly groggy after morphine. Strength not assessed due to pain. Reports bilateral neuropathy in lower extremities, but can feel light touch. Objective Labs Result Diagrams: 11/14/21 04:55 11/15/21 06:15 Labs: Laboratory Results - last 24 hr 11/15/21 11/15/21 11/15/21 06:15 06:15 13:50 Sodium 135 L Potassium 4.0 Chloride 105 Carbon Dioxide 27 BUN 21 H Creatinine 0.80 Estimated GFR > 60.0 BUN/Creatinine Ratio 26.3 H Glucose 248 H Calcium 8.6 Magnesium 1.8 Troponin I 0.044 H 0.037 H [facility] Medical History Hypertension Insulin dependent diabetes mellitus Neuropathy Surgical History Status post-operative repair of closed fracture of left hip Family History Brother Diabetes mellitus Mother Diabetes mellitus Social History marital status: details: Lives at home with who is 92 and requires nursing care. household members: spouse and other lives independently: Yes caregiver/support person: No Smoking Status: Never smoker alcohol intake: never substance use type: does not use Assessment & Plan Assessment & Plan narrative: 1. Pathologic right intertrochanteric femur fracture, acute, present on admission ?- appreciate orthopedic surgery consultation. S/p repair on 11/13/21. ?- PT / OT and pain control after surgery. 2. Type 2 diabetes, chronic, with insulin use ?- increased lantus to 60 from 55 tonight. Glucose generally around 180. Holding victoza as inpatient. ?- A1c 9%. Patient reports recently was 7.7%. ?- diabetic diet, consider health care administrator consultation 3. History of tachyarrhythmia ?- continue telemetry. multiple minute run of SVT overnight. restarted home metoprolol and diltiazem. 4. Hyperlipidemia ?- continue statin. 5. Chronic venous stasis 6. Obesity, BMI 43.3 ?- places patient at higher risk of surgical complications. 7. Elevated troponin level - likely elevated secondary to surgery, non-ischemic EKG, no chest pain. - troponin downtrended after initial elevation. No further interventions. Code: Full, surrogate decision maker she states is her son Dispo: Admitted as inpatient, likely SNF on discharge. DVT: per surgical service after OR. Time Spent With Patient Critical Care time: I spent a total of [] minutes of critical care time on this patient's care today; this time is exclusive of procedural time. Quality VTE Deep Vein Thrombosis/Pulmonary Embolism Present on Admission: No
[2021-11-15] MEDS: ATORVASTATIN 20 MG TABLET 80 MG PO (20:02)
[2021-11-15] MEDS: SODIUM CHLORIDE 0.9% FLUSH 10 ML IV (20:20)
[2021-11-15] MEDS: INSULIN GLARGINE 100 UNIT/ML 3ML PEN 60 UNIT SUBCUT (21:29)
--- NOTE | 2021-11-15 22:46 | PC.NURSE ---
Patient is alert and oriented. Breath sounds CTA with RA sat of 95%. HRR but tachy at 104 bpm. Was on telemetry with reading of ST; discontinued telemetry. Denied nausea. BT present and is passing flatus. Indwelling catheter is patent; urine is clear, dark yellow. Having difficulty with mobilization so catheter has not yet been d'cd. Needs help to reposition but declines to turn at time of assessment. Gait not assessed at this time but previous RN reports patient needing 3 assists when out of bed. Dressings to right hip are CDI. Bruising noted on bilateral hips. Complained of neuropathic pain in toes of left foot and was medicated with scheduled Tylenol. Complained of 7/10 right hip pain and was medicated at 2124 with oxycodone and is currently asleep. Wearing bilateral calf SCD's. Fall risk score is high and bed alarm is activated.
[2021-11-16] VITALS (14 sets, daily range): BP systolic 122–160; BP diastolic 72–92; PULSE 75–105; RESP 16–20; TEMP 36.2–37.4; O2SAT 92–95
[2021-11-16] MEDS: OXYCODONE IR 5 MG TABLET PO (04:05)
[2021-11-16] MEDS: OXYCODONE IR 5 MG TABLET 10 MG PO ×3 (06:57→21:15)
[2021-11-16 07:26] LABS: Add Manual Diff / Slide Review NO; Basophils Absolute Auto 100 /uL (0-100); Basophils Percent Auto 0.8 % (0-2); Eosinophils Absolute Auto 400 /uL (0-450); Eosinophils Percent Auto 4.2 % (2-4); Hematocrit 28.2 % (36-46); Hemoglobin 9.2 g/dL (12.0-16.0); Lymphocytes Absolute Auto 1600 /uL (1100-4500); Lymphocytes Percent Auto 15.4 % (25-40); Mean Corpuscular HGB Conc 32.5 % (30-36); Mean Corpuscular Hemoglobin 25.8 PG (26-34); Mean Corpuscular Volume 79.2 fL (80-100); Monocytes Absolute Auto 900 /uL (0-900); Monocytes Percent Auto 8.4 % (3-14); Neutrophils Absolute Auto 7400 /uL (1500-7000); Neutrophils Percent Auto 71.2 % (50-75); Platelet Count 150 X10^3/uL (150-400); Red Blood Cell Count 3.56 X10^6/uL (4.0-5.2); Red Cell Distribution Width 16.3 % (11.6-14.8); White Blood Cell Count 10.3 X10^3/uL (4.5-11.0)
[2021-11-16 07:38] LABS: Magnesium 1.9 mg/dL (1.6-2.3)
[2021-11-16 07:39] LABS: BUN Creatinine Ratio 24.3 (6-22); Blood Urea Nitrogen 17 mg/dL (7-17); Calcium 8.6 mg/dL (8.4-10.2); Carbon Dioxide 29 mmol/L (22-32); Chloride 105 mmol/L (98-107); Estimated Glomerular Filt Rate > 60.0 mL/min (>60); Glucose 235 mg/dL (80-110); HEMOLYSIS < 15 (0-50); Sodium 136 mmol/L (137-145)
[2021-11-16] MEDS: ACETAMINOPHEN 325 MG TABLET 975 MG PO ×3 (09:43→20:54)
[2021-11-16] MEDS: polyethylene glycoL 3350 17 GM POWD.PACK PO (09:43)
[2021-11-16] MEDS: ENOXAPARIN 40 MG/0.4 ML SYRINGE SUBCUT ×2 (09:43→20:55)
[2021-11-16] MEDS: FUROSEMIDE 40 MG TABLET PO (09:44)
[2021-11-16] MEDS: SODIUM CHLORIDE 0.9% FLUSH 10 ML IV ×2 (09:44→20:56)
[2021-11-16] MEDS: FLUoxetine 20 MG CAPSULE 40 MG PO (09:44)
[2021-11-16] MEDS: dilTIAZem CD 120 MG CAP PO (09:46)
[2021-11-16] MEDS: METOPROLOL ER 50 MG TABLET PO ×2 (09:46→20:56)
[2021-11-16] MEDS: INSULIN LISPRO 100 UNIT/ML 3ML VIAL SUBCUT ×4 (09:58→20:55)
[2021-11-16] MEDS: DOCUSATE 100 MG CAPSULE PO ×2 (09:59→20:54)
--- NOTE | 2021-11-16 11:43 | CM.DPC ---
Addendum entered by Lu BlanchardANICETO ramires 11/16/21 14:52: ADD: Per Janee at [facility], they can accept pt tomorrow and set up transport between [id number] 11/17/21. Per AIRCRAFT ENGINE [employer]CHAN[employer], just worked with pt and they had pt's friend/CG on phone who is agreeable with bringing some of pt's personal belongings to the hospital before 0900 tomorrow so that she has it before d/c. UVALDO updated , RN, torpedo shooter on d/c plan for tomorrow, COVID swab sent to the lab today. SW received call from [facility] in [facility] and they can accept pt in the morning as well but want to confirm safe d/c plan of pt back to home. SW updated that pt is hesitant about their facility due to lack of SNF facility transport van and Brian understands and can still accept her if needed in the AM. BF Original Note: DCP SNF Discharge Per MD, pt is medically stable to d/c to SNF and discontinued hardy to see if pt can void independently. SW met bedside with pt and AIRCRAFT ENGINE MECHANIC [employer]UL and confirmed pt can transport via cabulance at d/c and BLS NOT needed. SW updated pt on her 1st SNF preference of [facility] is currently reviewing and that [facility] has accepted but for tomorrow. Pt initially wanted [facility] as she had been there before and felt they had good care but after discussing transportation and that since [facility] is [facility] they will not provide transport to their facility. But [facility] provides transport. Pt is leaning towards [facility] due to transportation being provided. SW called Medicaid transport and confirmed that pt does NOT have transportation benefits to cover the cost of cabulance to [facility]. SW confirmed with [facility] that they cannot accept today (already have max admissions for today) but could accept tomorrow. SW also called [facility] and left msg. [facility] still not accepting today. [facility] full for females. [facility] is currently full. Left msg for [facility]. [facility] full. [facility] only accepting [facility] residents at this time. [facility] is full. [facility] and COVID vax copy previously completed. Plan: SW to follow for plan of d/c to [facility] tomorrow due to no SNF beds currently available today. ANICETO Leigh
--- NOTE | 2021-11-16 11:53 | PT.IPTN ---
Current Diagnoses Fracture of unspecified part of neck of unspecified femur, initial encounter for closed fracture (11/13/21) Surgery Performed Operation Date: 11/13/21 15:45 Actual Procedures p IMN intertrochanter hip fx(Right) - Alberta Bonilla MD Physical Therapy Treatment Note M2 PT-IP Current Condition Start: 11/14/21 13:04 Freq: NEEDED Status: Active Protocol: Document 11/14/21 10:36 AB (Rec: 11/14/21 13:15 AB [id number]) Physical Therapy Current Condition Current Condition Evaluation Date 11/14/21 Treatment Diagnosis R femur fx s/p nailing; difficulty in walking Onset Date 11/13/21 M3 PT-IP Subjective Start: 11/14/21 13:04 Freq: NEEDED Status: Active Protocol: Document 11/16/21 11:23 KS (Rec: 11/16/21 14:08 KS [id number]) Subjective Physical Therapy Visit Type Type Treatment Note Visit Start Time 11:23 Visit Stop Time 11:53 Total Visit Minutes 30 Number of STRAP SEWER Visits 1 Physical Therapy Visit Comments Patient Comments Pt requires encouragement but is interested in using BSC. Therapy Pain Assessment Pain When Pain Assessed During Mobility Pain Present Pain Present Pain Reported M4 PT-IP Mobility and Gait Start: 11/14/21 13:04 Freq: NEEDED Status: Active Protocol: Document 11/16/21 11:23 KS (Rec: 11/16/21 14:08 KS [id number]) PT-Bed Mobility Assessment Supine to Sit Supine to Sit Moderate Assistance,Maximum Assistance,1 Person Assistance ,Head of Bed Elevated,Bedrails Scooting Scooting to Edge of Bed Dependent PT-Transfer Assessment Sit to and From Stand Sit to and from Stand Maximum Assistance,2 Person Assistance,Use of Upper Extremities Equipment Transfer Assistive Device Gait Belt,Front Wheeled Walker Orthotic/Prosthetic Devices or Brace: No Transfers Transfer Destination Bedside Commode Transfer Ability Level of Assist Maximum Assistance,2 Person Assistance,Use of Upper Extremities Comments Mobility Comments Pt in bed and hesistance to participate. Reports pain w/ movement. Able to somewhat self assist RLE w/ gaitbelt but ultimately still requring Mod/Max A for sup<>sit w/ HOB elevated and cues. RN arrived for assist. Max A x2 and cues for sit<>stand w/ FWW and Max A x2 and cues for sequencing for stand step pivot to [facility]. Pt left on commode w/ RN in room. Gait Assessment Gait Gait Assistance Required: Maximum Assistance,2 Person Assist Comments Gait Comments Stand step pivot only. PT-Balance Assessment Sitting Balance and Reactions Static Sitting Balance Ability Fair Dynamic Sitting Balance Ability Poor Standing Balance and Reactions Static Standing Balance Ability Poor Dynamic Standing Balance Ability Poor Device Used FWW M5 PT-IP Objective Assessments Start: 11/14/21 13:04 Freq: NEEDED Status: Active Protocol: Document 11/14/21 10:36 AB (Rec: 11/14/21 13:15 AB [id number]) Orientation Orientation/Cognition Level of Alertness Confusional State Orientation Name Safety Awareness Decreased Safety Awareness Memory Description Short Term Impaired Gross Range of Motion Lower Extremity ROM Impairments pt with increase LE guarding with PROM Strength Lower Extremity Strength Assessment Bilaterally Impaired Comments Strength Comments RLE: 3-/5 LLE:3-/5 Coordination Assessment Gross Coordination Gross Coordination WNL Sensation Assessment Sensation Gross Sensation Right LE Impaired,Left LE Impaired Sensation Description Numbness,Tingling Comments Sensation Comments has BLE neuropathy Muscle Tone Muscle Tone WNL Yes M6 PT-IP Treatment Start: 11/14/21 13:04 Freq: NEEDED Status: Active Protocol: Document 11/16/21 11:23 KS (Rec: 11/16/21 14:08 KS [id number]) Physical Therapy Treatment Education Education Provided Safety Other Treatments Other Treatment Performed Continued to educate pt on importance of continued mobility/risks of immobility. M7 PT-IP Assessment and Plan Start: 11/14/21 13:04 Freq: NEEDED Status: Active Protocol: Document 11/16/21 11:23 KS (Rec: 11/16/21 14:08 VT [id number]) PT Summary Assessment and Plan Potential Rehabilitation Potential Fair Summary Impairments Pain,ROM,Strength,Balance, Coordination,Sensation,Tone, Cognition,Bed Mobility, Transfers,Gait,Activity Tolerance Progress Towards Goals Slow Progress due to Pain,Slow Progress due to Activity Tolerance,Slow Progress - Other Assessment Summary Pt continues to be limited by her anxiouness and fearfulness as well as weakness and pain. She needs frequent encouragement and cues to participate and requires increased time w/ all tasks. Some improvment in mobility today Mod/Max A for bed mobility and Max A x2 rather than 3 for transfer. She will require SNF to improve strength and functional mobility. Goals Bed Mobility Goal Minimal Assistance Transfer Goal Minimal Assistance,Front Wheeled Walker Gait Goal Minimal Assistance,Front Wheel Walker Gait Distance 50 Other Goals improve bed mobility , transfers SBA using FWW improve ambulation using FWW 125 ft SBA Frequency of Treatment Frequency Of Treatment Twice a Day Treatment Plan Physical Therapy Treatment Plan Bed Mobility Training,Transfer Training,Gait Training, Therapeutic Exercise,Balance Retraining,Post Op Education, Discharge Planning,Hot or Cold Pack,Neuromuscular Re-ed, Coordination Retraining,Manual Therapy Weight Bearing Status Weight Bearing Status Weight Bear as Tolerated Allowed Weight Bearing Amount (enter % RLE WBAT or #) (%) Recommendations To Nursing Amount of Assist Needed Mechanical Lift Discharge Recommendations PT Discharge Recommendations SNF Rehab Equipment Needed for Home Before FWW if pt goes home Discharge Transportation Needs at Discharge Wheelchair/Cabulance
--- NOTE | 2021-11-16 12:20 | PT.IPTN ---
Current Diagnoses Fracture of unspecified part of neck of unspecified femur, initial encounter for closed fracture (11/13/21) Surgery Performed Operation Date: 11/13/21 15:45 Actual Procedures p IMN intertrochanter hip fx(Right) - Alberta Bonilla MD Physical Therapy Treatment Note M2 PT-IP Current Condition Start: 11/14/21 13:04 Freq: NEEDED Status: Active Protocol: Document 11/14/21 10:36 AB (Rec: 11/14/21 13:15 AB [id number]) Physical Therapy Current Condition Current Condition Evaluation Date 11/14/21 Treatment Diagnosis R femur fx s/p nailing; difficulty in walking Onset Date 11/13/21 M3 PT-IP Subjective Start: 11/14/21 13:04 Freq: NEEDED Status: Active Protocol: Document 11/16/21 12:04 KS (Rec: 11/16/21 14:14 KS [id number]) Subjective Physical Therapy Visit Type Type Treatment Note Visit Start Time 12:04 Visit Stop Time 12:20 Total Visit Minutes 16 Number of TRUCK MANAGER Visits 1 Physical Therapy Visit Comments Patient Comments Pt agreeable to transfer to chair. M4 PT-IP Mobility and Gait Start: 11/14/21 13:04 Freq: NEEDED Status: Active Protocol: Document 11/16/21 12:04 KS (Rec: 11/16/21 14:14 KS [id number]) PT-Bed Mobility Assessment Scooting Scooting to Edge of Bed Maximum Assistance PT-Transfer Assessment Sit to and From Stand Sit to and from Stand Maximum Assistance,2 Person Assistance,Use of Upper Extremities Equipment Transfer Assistive Device Gait Belt,Front Wheeled Walker Orthotic/Prosthetic Devices or Brace: No Transfers Transfer Destination Chair Transfer Ability Level of Assist Maximum Assistance,2 Person Assistance,Use of Upper Extremities Comments Mobility Comments Pt on BSC upon arrival w/ RN in room. Pt continues to require constant encouragement to mobilize due to anxiety and fear of pain and falling. Max A x2 for sit<>stand and Max A x2 for stand step pivot to chair. Pt unable to move LLE when prompted verbally and tactically and must sit before positioned well due to inability to remain standing because of weakness. Max A and cues for slow descent. Pt left reclined in chair w/ all needs in reach and RN in room. Gait Assessment Gait Gait Assistance Required: Maximum Assistance,2 Person Assist Comments Gait Comments Stand step pivot only. PT-Balance Assessment Sitting Balance and Reactions Static Sitting Balance Ability Fair Dynamic Sitting Balance Ability Poor Standing Balance and Reactions Static Standing Balance Ability Poor Dynamic Standing Balance Ability Poor Device Used FWW M5 PT-IP Objective Assessments Start: 11/14/21 13:04 Freq: NEEDED Status: Active Protocol: Document 11/14/21 10:36 AB (Rec: 11/14/21 13:15 AB [id number]) Orientation Orientation/Cognition Level of Alertness Confusional State Orientation Name Safety Awareness Decreased Safety Awareness Memory Description Short Term Impaired Gross Range of Motion Lower Extremity ROM Impairments pt with increase LE guarding with PROM Strength Lower Extremity Strength Assessment Bilaterally Impaired Comments Strength Comments RLE: 3-/5 LLE:3-/5 Coordination Assessment Gross Coordination Gross Coordination WNL Sensation Assessment Sensation Gross Sensation Right LE Impaired,Left LE Impaired Sensation Description Numbness,Tingling Comments Sensation Comments has BLE neuropathy Muscle Tone Muscle Tone WNL Yes M6 PT-IP Treatment Start: 11/14/21 13:04 Freq: NEEDED Status: Active Protocol: Document 11/16/21 12:04 KS (Rec: 11/16/21 14:14 KS [id number]) Physical Therapy Treatment Education Education Provided Safety M7 PT-IP Assessment and Plan Start: 11/14/21 13:04 Freq: NEEDED Status: Active Protocol: Document 11/16/21 12:04 KS (Rec: 11/16/21 14:14 KS [id number]) PT Summary Assessment and Plan Potential Rehabilitation Potential Fair Summary Impairments Pain,ROM,Strength,Balance, Coordination,Sensation,Tone, Cognition,Bed Mobility, Transfers,Gait,Activity Tolerance Progress Towards Goals Slow Progress due to Pain,Slow Progress due to Activity Tolerance,Slow Progress - Other Assessment Summary Pt transferred to chair from [facility] Max A x2. She required frequent cues and encouragement throughout transfer and ultimately was unable to take steps to line up well w/ chair due to weakness, only able to turn, pivot and shuffle feet w/ step by step commands. She will require SNF to improve strength and mobility. Goals Bed Mobility Goal Minimal Assistance Transfer Goal Minimal Assistance,Front Wheeled Walker Gait Goal Minimal Assistance,Front Wheel Walker Gait Distance 50 Other Goals improve bed mobility , transfers SBA using FWW improve ambulation using FWW 125 ft SBA Frequency of Treatment Frequency Of Treatment Twice a Day Treatment Plan Physical Therapy Treatment Plan Bed Mobility Training,Transfer Training,Gait Training, Therapeutic Exercise,Balance Retraining,Post Op Education, Discharge Planning,Hot or Cold Pack,Neuromuscular Re-ed, Coordination Retraining,Manual Therapy Weight Bearing Status Weight Bearing Status Weight Bear as Tolerated Allowed Weight Bearing Amount (enter % RLE WBAT or #) (%) Recommendations To Nursing Amount of Assist Needed Mechanical Lift Discharge Recommendations PT Discharge Recommendations SNF Rehab Equipment Needed for Home Before FWW if pt goes home Discharge Transportation Needs at Discharge Wheelchair/Cabulance
--- NOTE | 2021-11-16 13:33 | P.PN_ITS ---
Subjective Subjective Date Patient Seen: 11/16/21 Time Patient Seen: 08:00 Interval history: She has hip pain. Otherwise she has no complaints. Exam Vital Signs (past 8 hours): - 11/16/21 06:00 11/16/21 06:10 11/16/21 09:46 Temperature 98.3 F Pulse Rate 79 105 H Respiratory Rate 16 Blood Pressure 122/77 144/92 H Pulse Oximetry 94 94 11/16/21 10:27 11/16/21 12:44 Temperature 97.8 F Pulse Rate 104 H Respiratory Rate 20 Blood Pressure Pulse Oximetry 95 95 Oxygen Delivery Method Room Air Oxygen Flow Rate 0 Narrative Exam Narrative: GENERAL APPEARANCE: no acute distress LUNGS: clear bilaterally CARDIOVASCULAR:rate and rhythm without any murmurs ABDOMEN:? Soft, nontender, and nondistended. MUSCULOSKELETAL:? Right hip appropriately tender, dressing c/d/i. No joint effusions apparent. Objective Labs Result Diagrams: 11/16/21 07:05 11/16/21 07:05 Labs: Laboratory Results - last 24 hr 11/15/21 11/16/21 11/16/21 13:50 07:05 07:05 WBC 10.3 RBC 3.56 L Hgb 9.2 L Hct 28.2 L MCV 79.2 L MCH 25.8 L MCHC 32.5 RDW 16.3 H Plt Count 150 Neut % (Auto) 71.2 Lymph % (Auto) 15.4 L [place] % (Auto) 8.4 Eos % (Auto) 4.2 H Baso % (Auto) 0.8 Neut # (Auto) 7400 H Lymph # (Auto) 1600 [place] # (Auto) 900 Eos # (Auto) 400 Baso # (Auto) 100 Sodium Potassium Chloride Carbon Dioxide BUN Creatinine Estimated GFR BUN/Creatinine Ratio Glucose Calcium Magnesium 1.9 Troponin I 0.037 H 11/16/21 07:05 WBC RBC Hgb Hct MCV MCH MCHC RDW Plt Count Neut % (Auto) Lymph % (Auto) [place] % (Auto) Eos % (Auto) Baso % (Auto) Neut # (Auto) Lymph # (Auto) [place] # (Auto) Eos # (Auto) Baso # (Auto) Sodium 136 L Potassium 4.0 Chloride 105 Carbon Dioxide 29 BUN 17 Creatinine 0.70 Estimated GFR > 60.0 BUN/Creatinine Ratio 24.3 H Glucose 235 H Calcium 8.6 Magnesium Troponin I PFSH Medical History Hypertension Insulin dependent diabetes mellitus Neuropathy Surgical History Status post-operative repair of closed fracture of left hip Family History Brother Diabetes mellitus Mother Diabetes mellitus Social History marital status: details: Lives at home with who is 92 and requires nursing care. household members: spouse and other lives independently: Yes caregiver/support person: No Smoking Status: Never smoker alcohol intake: never substance use type: does not use Assessment & Plan Assessment & Plan narrative: 1. Pathologic right intertrochanteric femur fracture, acute, present on admission ?- appreciate orthopedic surgery consultation. S/p repair on 11/13/21. ?- PT / OT and pain control after surgery. 2. Type 2 diabetes, chronic, with insulin use ?- initially increased lantus to 60 from 55. Glucose elevated over 300. Will increase lantus further to 80U daily, patient trying to get victoza ?- A1c 9%. Patient reports recently was 7.7%. ?- diabetic diet, consider digital marketing intern consultation 3. History of tachyarrhythmia ?- continue telemetry. multiple minute run of SVT overnight. restarted home metoprolol and diltiazem. 4. Hyperlipidemia ?- continue statin. 5. Chronic venous stasis 6. Obesity, BMI 43.3 ?- places patient at higher risk of surgical complications. 7. Elevated troponin level ?- likely elevated secondary to surgery, non-ischemic EKG, no chest pain. ?- troponin downtrended after initial elevation. No further interventions. Code: Full, surrogate decision maker she states is her son Dispo: medically stable for discharge to SNF DVT: per surgical service after OR. Time Spent With Patient Critical Care time: I spent a total of [] minutes of critical care time on this patient's care today; this time is exclusive of procedural time. Quality VTE Deep Vein Thrombosis/Pulmonary Embolism Present on Admission: No
--- NOTE | 2021-11-16 13:38 | PM.PNPO.1 ---
Subjective Subjective Date Patient Seen: 11/16/21 Time Patient Seen: 13:39 Interval history: Patient states her pain is moderate this morning. It is difficult to work with physical therapy. She lives at home with her 92-year-old requires care giving himself. She denies any new numbness or tingling-baseline peripheral neuropathy in bilateral feet. Exam Vital Signs (past 8 hours): - 11/16/21 06:00 11/16/21 06:10 11/16/21 09:46 Temperature 98.3 F Pulse Rate 79 105 H Respiratory Rate 16 Blood Pressure 122/77 144/92 H Pulse Oximetry 94 94 11/16/21 10:27 11/16/21 12:44 Temperature 97.8 F Pulse Rate 104 H Respiratory Rate 20 Blood Pressure Pulse Oximetry 95 95 Oxygen Delivery Method Room Air Oxygen Flow Rate 0 Narrative Exam Narrative: Pleasant 76-year-old female, resting comfortably in a chair, no acute distress. Dressing is clean, dry, intact. Bilateral lower extremity: Motor functions are grossly intact, sensation is grossly intact to light touch, calves are soft and nontender to palpation. Objective Labs Result Diagrams: 11/16/21 07:05 11/16/21 07:05 Labs: Laboratory Results - last 24 hr 11/15/21 11/16/21 11/16/21 13:50 07:05 07:05 WBC 10.3 RBC 3.56 L Hgb 9.2 L Hct 28.2 L MCV 79.2 L MCH 25.8 L MCHC 32.5 RDW 16.3 H Plt Count 150 Neut % (Auto) 71.2 Lymph % (Auto) 15.4 L [place] % (Auto) 8.4 Eos % (Auto) 4.2 H Baso % (Auto) 0.8 Neut # (Auto) 7400 H Lymph # (Auto) 1600 [place] # (Auto) 900 Eos # (Auto) 400 Baso # (Auto) 100 Sodium Potassium Chloride Carbon Dioxide BUN Creatinine Estimated GFR BUN/Creatinine Ratio Glucose Calcium Magnesium 1.9 Troponin I 0.037 H 11/16/21 07:05 WBC RBC Hgb Hct MCV MCH MCHC RDW Plt Count Neut % (Auto) Lymph % (Auto) [place] % (Auto) Eos % (Auto) Baso % (Auto) Neut # (Auto) Lymph # (Auto) [place] # (Auto) Eos # (Auto) Baso # (Auto) Sodium 136 L Potassium 4.0 Chloride 105 Carbon Dioxide 29 BUN 17 Creatinine 0.70 Estimated GFR > 60.0 BUN/Creatinine Ratio 24.3 H Glucose 235 H Calcium 8.6 Magnesium Troponin I COUNT INCLUDES THE [facility] Medical History Hypertension Insulin dependent diabetes mellitus Neuropathy Surgical History Status post-operative repair of closed fracture of left hip Family History Brother Diabetes mellitus Mother Diabetes mellitus Social History marital status: details: Lives at home with who is 92 and requires nursing care. household members: spouse and other lives independently: Yes caregiver/support person: No Smoking Status: Never smoker alcohol intake: never substance use type: does not use Assessment & Plan Post-op Postoperative Procedures: Procedures Operation Date: 11/13/21 15:45 Actual Procedure Side Surgeon p IMN intertrochanter hip fx Right Alberta Bonilla MD Postoperative day: 3 Postoperative status narrative: Stable status post fixation of right intertrochanteric hip fracture with cephalomedullary nail Postoperative plan narrative: -Mobilize with physical therapy -Weightbear as tolerated right lower extremity. -Lovenox for DVT prophylaxis x4 weeks unless mobilizing well then could consider aspirin. -Disposition likely will need assisted facility, based on primary care team recommendation. Quality VTE Deep Vein Thrombosis/Pulmonary Embolism Present on Admission: No
[2021-11-16 14:02] LABS: COVID19 -Nasal RAPID Negative (Negative)
--- NOTE | 2021-11-16 14:07 | CM.DPNOTE ---
Janee from called and said [facility] can car pick up driver patient between [phone]. I accepted this time, and will relay to Lu. We need to call Janee if there is an issue. Aislinn Adamson CM Assist.
[2021-11-16] MEDS: ATORVASTATIN 20 MG TABLET 80 MG PO (20:54)
[2021-11-16] MEDS: INSULIN GLARGINE 100 UNIT/ML 3ML PEN 80 UNIT SUBCUT (20:55)
[2021-11-17] VITALS (14 sets, daily range): BP systolic 139–165; BP diastolic 70–99; PULSE 79–106; RESP 14–16; TEMP 36.1–36.9; O2SAT 91–96
--- NOTE | 2021-11-17 00:23 | PC.NURSE ---
Patient is alert and oriented. Breath sounds CTA with RA sat of 92%. HRR. BP elevated at 160/92 and HR tachy at 105 bpm; medicated with scheduled Metoprolol. Denied nausea. BT hypoactive and is passing flatus but last BM was 11/13. Had catheter removed yesterday and has been voiding incontinent. Has great difficulty with mobility needing 2-3 assists to turn in bed and patient resists moving. Dressings to right hip are CDI. Bruising noted on bilateral LE, pubic area and left upper arm. Allevyn dressing to left LE is CDI. Complained of 4/10 left foot pain and 7/10 right hip pain and was medicated with scheduled Tylenol + po oxycodone earlier and is now asleep. Is unable to lift right leg off bed. CMS intact except for chronic bilateral foot neuropathy. Wearing bilateral calf SCD's. CBG remaining quite elevated and was 357 at 2100. Fall risk score is high and bed alarm is activated.
[2021-11-17] MEDS: OXYCODONE IR 5 MG TABLET 10 MG PO (00:58)
[2021-11-17 05:00] LABS: Add Manual Diff / Slide Review NO; Basophils Absolute Auto 100 /uL (0-100); Basophils Percent Auto 0.9 % (0-2); Eosinophils Absolute Auto 500 /uL (0-450); Eosinophils Percent Auto 4.4 % (2-4); Lymphocytes Absolute Auto 1900 /uL (1100-4500); Lymphocytes Percent Auto 16.9 % (25-40); Mean Corpuscular HGB Conc 32.3 % (30-36); Mean Corpuscular Hemoglobin 25.5 PG (26-34); Monocytes Absolute Auto 1000 /uL (0-900); Monocytes Percent Auto 9.1 % (3-14); Neutrophils Absolute Auto 7600 /uL (1500-7000); Neutrophils Percent Auto 68.7 % (50-75); Platelet Count 196 X10^3/uL (150-400); Red Blood Cell Count 3.54 X10^6/uL (4.0-5.2); Red Cell Distribution Width 16.3 % (11.6-14.8); White Blood Cell Count 11.1 X10^3/uL (4.5-11.0)
[2021-11-17 05:24] LABS: BUN Creatinine Ratio 27.6 (6-22); Blood Urea Nitrogen 24 mg/dL (7-17); Calcium 8.7 mg/dL (8.4-10.2); Carbon Dioxide 29 mmol/L (22-32); Chloride 104 mmol/L (98-107); Estimated Glomerular Filt Rate > 60.0 mL/min (>60); Glucose 179 mg/dL (80-110); HEMOLYSIS < 15 (0-50); Sodium 135 mmol/L (137-145)
[2021-11-17] MEDS: OXYCODONE IR 5 MG TABLET PO ×3 (07:34→18:54)
[2021-11-17] MEDS: polyethylene glycoL 3350 17 GM POWD.PACK PO (08:44)
[2021-11-17] MEDS: ENOXAPARIN 40 MG/0.4 ML SYRINGE SUBCUT ×2 (08:44→20:44)
[2021-11-17] MEDS: METOPROLOL ER 50 MG TABLET PO ×2 (08:44→20:45)
[2021-11-17] MEDS: DOCUSATE 100 MG CAPSULE PO ×2 (08:45→20:45)
[2021-11-17] MEDS: dilTIAZem CD 120 MG CAP PO (08:45)
[2021-11-17] MEDS: ACETAMINOPHEN 325 MG TABLET 975 MG PO ×3 (08:46→20:46)
[2021-11-17] MEDS: FLUoxetine 20 MG CAPSULE 40 MG PO (08:46)
[2021-11-17] MEDS: INSULIN LISPRO 100 UNIT/ML 3ML VIAL SUBCUT ×4 (08:47→20:49)
--- NOTE | 2021-11-17 08:48 | PM.PN.1 ---
Subjective Subjective Interval history: Patient denies any acute complaints this morning. She is aware that she is pending discharge to a custodial facility. Exam Vital Signs (past 8 hours): - 11/17/21 03:25 11/17/21 07:50 11/17/21 08:44 Temperature 96.9 F L Pulse Rate 79 106 H Respiratory Rate 16 Blood Pressure 140/78 165/88 H Pulse Oximetry 92 94 Oxygen Delivery Method Room Air Oxygen Flow Rate 0 Narrative Exam Narrative: GENERAL APPEARANCE: laying in bed comfortably upon my entering the room, in no apparent acute distress LUNGS: clear to auscultation bilaterally CARDIOVASCULAR: regular rate and rhythm, without any murmurs appreciated ABDOMEN:? Soft, non-tender, non-distended, bowel sounds present MUSCULOSKELETAL:? Right hip appropriately tender, dressing clean, dry and intact. No joint effusions apparent. Objective Labs Result Diagrams: 11/17/21 04:20 11/17/21 04:20 Labs: Laboratory Results - last 24 hr 11/16/21 11/17/21 11/17/21 13:41 04:20 04:20 WBC 11.1 H RBC 3.54 L Hgb 9.0 L Hct 28.0 L MCV 79.0 L MCH 25.5 L MCHC 32.3 RDW 16.3 H Plt Count 196 Neut % (Auto) 68.7 Lymph % (Auto) 16.9 L [place] % (Auto) 9.1 Eos % (Auto) 4.4 H Baso % (Auto) 0.9 Neut # (Auto) 7600 H Lymph # (Auto) 1900 [place] # (Auto) 1000 H Eos # (Auto) 500 H Baso # (Auto) 100 Sodium 135 L Potassium 4.0 Chloride 104 Carbon Dioxide 29 BUN 24 H Creatinine 0.87 Estimated GFR > 60.0 BUN/Creatinine Ratio 27.6 H Glucose 179 H Calcium 8.7 SARS-CoV-2 (PCR) Negative PFSH Medical History Hypertension Insulin dependent diabetes mellitus Neuropathy Surgical History Status post-operative repair of closed fracture of left hip Family History Brother Diabetes mellitus Mother Diabetes mellitus Social History marital status: details: Lives at home with who is 92 and requires nursing care. household members: spouse and other lives independently: Yes caregiver/support person: No Smoking Status: Never smoker alcohol intake: never substance use type: does not use Assessment & Plan Assessment & Plan narrative: 1. Pathologic right intertrochanteric femur fracture, acute, present on admission, status post ORIF on Nov 13, 2021 ?- appreciate orthopedic surgery consultation. S/p repair on 11/13/21 ?- PT / OT and pain control after surgery?- will need VTE prophylaxis with Lovenox for 4 weeks after surgery 2. Type 2 diabetes, chronic, with insulin use ?- initially increased lantus to 60 from 55. Glucose elevated over 300. Will increase lantus further to 80U, patient trying to get victoza ?- A1c 9%. Patient reports recently was 7.7%. ?- diabetic diet 3. History of tachyarrhythmia ?- restarted home metoprolol and diltiazem. 4. Hyperlipidemia ?- continue statin. 5. Chronic venous stasis 6. Obesity, BMI 43.3 ?- places patient at higher risk of surgical complications. 7. Elevated troponin level ?- likely elevated secondary to surgery, non-ischemic EKG, no chest pain. ?- troponin downtrended after initial elevation. No further interventions. Code: Full, surrogate decision maker she states is her son I have utilized all available immediate resources to obtain, update, or review the patient's current medications. Time Spent With Patient Critical Care time: I spent a total of [] minutes of critical care time on this patient's care today; this time is exclusive of procedural time. Quality VTE Deep Vein Thrombosis/Pulmonary Embolism Present on Admission: No MIPS - Admit I confirm the patient?s Advance Care Plan is present, Code status is documented, Surrogate decision maker is in patient?s record [If Yes, STOP here]: Yes
--- NOTE | 2021-11-17 08:54 | PM.DS.1 ---
History of Present Illness History of Present Illness Chief complaint: MECHANICAL FALL Narrative: This is a 76-year-old female the past medical history of diabetes, hypertension, neuropathy, chronic venous stasis, unknown tachyarrhythmia (either SVT or possibly afib, not on AC) who presented to the emergency room with right hip pain after mechanical fall.? Patient states that she was in the kitchen very early this morning as she has been having difficulty sleeping.? Of roommate also entered the kitchen and they both became startled, she jumped back and ended up falling on the kitchen floor onto her right side and had pain immediately after.? The pain is now better controlled, worse with movement, and does not radiate.? It is described as a sharp and stabbing sensation.? It is alleviated with rest.? She denies any recent chest pain, shortness of breath, dizziness.? She does endorse intermittent palpitations but none recently a none prior to her fall.? She denies any dysuria or urinary frequency.? She denies any recent fevers, chills, cough. In the emergency room, hiccup x-ray did show a right femoral intertrochanteric fracture.? Her vital signs were notable for hypertension and mild tachycardia, likely due to pain.? The remainder of her vital signs are unremarkable.? Initial laboratory evaluation was unremarkable.? A1c was noted to be 9.1%.? Urinalysis did not show infection.? COVID-19 testing was negative.? EKG was not performed but has been ordered. Discharge Providers Provider Date of admission: 11/13/21 08:44 Discharge Date: 11/17/21 Consults: 11/13/21 05:45 Consult to Orthopedic Surgery Stat Comment: Consulting Provider: Alberta Bonilla Reason for consultation: hip fracture Has provider been notified: Yes 11/13/21 19:11 Consult to Discharge Planning Routine Comment: Consult to Physical Therapy Evaluate & Treat Comment: wbat Physician Instructions: Evaluate and Treat Consult to Respiratory Therapy Evaluate & Treat Comment: Physician Instructions: Evaluate and treat Discharge provider: Martell Alicea MD Summary Hospital Course Discharge Diagnosis: 1. Pathologic right intertrochanteric femur fracture, acute, present on admission, status post ORIF on Nov 13, 2021 ?- appreciate orthopedic surgery consultation. S/p repair on 11/13/21 ?- PT / OT and pain control after surgery - will need VTE prophylaxis with Lovenox for 4 weeks after surgery 2. Type 2 diabetes, chronic, with insulin use ?- initially increased lantus to 60 from 55. Glucose elevated over 300. Will increase lantus further to 80U, patient trying to get victoza ?- A1c 9%. Patient reports recently was 7.7%. ?- diabetic diet 3. History of tachyarrhythmia ?- restarted home metoprolol and diltiazem. 4. Hyperlipidemia ?- continue statin. 5. Chronic venous stasis 6. Obesity, BMI 43.3 ?- places patient at higher risk of surgical complications. 7. Elevated troponin level ?- likely elevated secondary to surgery, non-ischemic EKG, no chest pain. ?- troponin downtrended after initial elevation. No further interventions. Exam Vital Signs (past 8 hours): - 11/17/21 03:25 11/17/21 07:50 11/17/21 08:44 Temperature 96.9 F L Pulse Rate 79 106 H Respiratory Rate 16 Blood Pressure 140/78 165/88 H Pulse Oximetry 92 94 Oxygen Delivery Method Room Air Oxygen Flow Rate 0 Objective Labs Result Diagrams: 11/17/21 04:20 11/17/21 04:20 Labs: Laboratory Results - last 24 hr 11/16/21 11/17/21 11/17/21 13:41 04:20 04:20 WBC 11.1 H RBC 3.54 L Hgb 9.0 L Hct 28.0 L MCV 79.0 L MCH 25.5 L MCHC 32.3 RDW 16.3 H Plt Count 196 Neut % (Auto) 68.7 Lymph % (Auto) 16.9 L [place] % (Auto) 9.1 Eos % (Auto) 4.4 H Baso % (Auto) 0.9 Neut # (Auto) 7600 H Lymph # (Auto) 1900 [place] # (Auto) 1000 H Eos # (Auto) 500 H Baso # (Auto) 100 Sodium 135 L Potassium 4.0 Chloride 104 Carbon Dioxide 29 BUN 24 H Creatinine 0.87 Estimated GFR > 60.0 BUN/Creatinine Ratio 27.6 H Glucose 179 H Calcium 8.7 SARS-CoV-2 (PCR) Negative [facility] Medical History Hypertension Insulin dependent diabetes mellitus Neuropathy Surgical History Status post-operative repair of closed fracture of left hip Family History Brother Diabetes mellitus Mother Diabetes mellitus Social History marital status: details: Lives at home with who is 92 and requires nursing care. household members: spouse and other lives independently: Yes caregiver/support person: No Smoking Status: Never smoker alcohol intake: never substance use type: does not use Discharge Assessment & Plan Assessment and Plan Assessment: 1. Pathologic right intertrochanteric femur fracture, acute, present on admission, status post ORIF on Nov 13, 2021 ?- appreciate orthopedic surgery consultation. S/p repair on 11/13/21 ?- PT / OT and pain control after surgery - will need VTE prophylaxis with Lovenox for 4 weeks after surgery 2. Type 2 diabetes, chronic, with insulin use ?- initially increased lantus to 60 from 55. Glucose elevated over 300. Will increase lantus further to 80U, patient trying to get victoza ?- A1c 9%. Patient reports recently was 7.7%. ?- diabetic diet 3. History of tachyarrhythmia ?- restarted home metoprolol and diltiazem. 4. Hyperlipidemia ?- continue statin. 5. Chronic venous stasis 6. Obesity, BMI 43.3 ?- places patient at higher risk of surgical complications. 7. Elevated troponin level ?- likely elevated secondary to surgery, non-ischemic EKG, no chest pain. ?- troponin downtrended after initial elevation. No further interventions. Discharge Plan Discharge Plan Patient Disposition: SNF Transfer to: [facility] Discharge orders & Medications Prescriptions: New docusate sodium 100 mg Capsule 100 mg PO BID 7 Days Qty: 14 0RF oxycodone 5 mg Tablet 5 mg PO Q6HR PRN (Reason: Pain) 7 Days Qty: 28 0RF enoxaparin [Lovenox] 40 mg/0.4 mL Syringe 40 mg SUBCUT BID 28 Days Qty: 22.4 0RF Continued atorvastatin 80 mg tablet 80 mg PO BEDTIME 0RF metformin 1,000 mg tablet 1,000 mg PO BID 0RF Label Comments: take 1 tablet by mouth twice a day Basaglsoy ChatterjeePen U-100 Insulin 100 unit/mL (3 mL) insulin pen 55 unit SUBCUT DAILY 0RF Victoza 3-Thomas 0.6 mg/0.1 mL (18 mg/3 mL) pen injector 1.8 mg SUBCUT DAILY 0RF Label Comments: inject 1.8 milligrams subcutaneously once daily fluoxetine 40 mg capsule 40 mg PO DAILY 0RF Label Comments: take 1 capsule by mouth once daily metoprolol succinate 50 mg tablet extended release 24 hr 50 mg PO BID 0RF Label Comments: take 1 tablet by mouth twice a day Novolin R Regular U-100 Insuln 100 unit/mL solution See Rx Instructions .ROUTE .COMPLEX 0RF Label Comments: inject 10 units subcutaneously up to three times a day PER SLIDIN... (REFER TO PRESCRIPTION NOTES). Rx Instructions: 10 U TID with sliding scale diltiazem HCl [DILT-XR] 120 mg capsule,ext.rel 24h degradable 120 mg PO DAILY 0RF Label Comments: take 1 capsule by mouth once daily furosemide 20 mg tablet 40 mg PO DAILY 0RF Label Comments: take 2 tablets by mouth every morning Quality VTE Deep Vein Thrombosis/Pulmonary Embolism Present on Admission: No
--- NOTE | 2021-11-17 09:10 | CM.DPC ---
Addendum entered by ANICETO Leigh 11/17/21 12:42: ADD: Call from Janee at [facility] an hour before transport was to arrive (as transport had to change the time to 1130) stating they just had a couple residents test positive for COVID and they cannot accept the pt at this time or for at least a few days pending their COVID testing results. UVALDO called [facility] back to determine if they can still accept today and their admission was filled for today but confirm they can accept tomorrow 11/18/21 and KALYANI Tao faxed updated PT/OT notes and d/c packet to review. SW met bedside with pt and updated on above and she was disappointed in not having transport up to [facility] but thankful for [facility]'s care. SW discussed that pt does not need BLS transport but also too much assist for POV and therefore cabulance and not covered by insurance (already confirmed she does not have Medicaid transport benefits). SW received quote from [facility] of $236.88 and they do not do payment plans but need a credit or debit card. Pt was in agreement with calling her son to see if he would be willing to use his credit card and pt put him on Speaker Phone in room and SW updated on above and he was in [facility] and SW provided the contact info. UVALDO updated [facility] on plan of 1100 transport via [facility] tomorrow and she confirms they can accept and she will review the d/c packet. UVALDO updated RN, MD, duct installer, and HAMMER HEATER on 1100 transport tomorrow to [facility]. ANICETO Leigh Original Note: DCP Discharge SNF Per MD, pt remains stable for d/c to SNF today and no identified barriers to discharge. [facility] and left msg with update on pt d/c for today and RN was able to obtain pt's COVID neg swab yesterday afternoon and signed med list and wrote script for pain med. KALYANI Tao kindly faxing d/c packet including PASRR and COVID vax copy to [facility] to review. UVALDO updated RN, MD, HAMMER HEATER, and duct installer. UVALDO also updated [facility] that pt made decision to stay in [facility] for easier transport and family to visit. Plan: Patient to d/c to [facility] via facility van around [id number] this morning prior to safe return home with spouse, roommate and caregiver. ANICETO Leigh
--- NOTE | 2021-11-17 09:14 | CM.DPNOTE ---
Emailed Janee final SNF packet and received conf. Aislinn Adamson CM Assist.
--- NOTE | 2021-11-17 12:06 | PT.IPTN ---
Current Diagnoses Fracture of unspecified part of neck of unspecified femur, initial encounter for closed fracture (11/13/21) Surgery Performed Operation Date: 11/13/21 15:45 Actual Procedures p IMN intertrochanter hip fx(Right) - Alberta Bonilla MD Physical Therapy Treatment Note M2 PT-IP Current Condition Start: 11/14/21 13:04 Freq: NEEDED Status: Active Protocol: Document 11/14/21 10:36 AB (Rec: 11/14/21 13:15 AB [id number]) Physical Therapy Current Condition Current Condition Evaluation Date 11/14/21 Treatment Diagnosis R femur fx s/p nailing; difficulty in walking Onset Date 11/13/21 M3 PT-IP Subjective Start: 11/14/21 13:04 Freq: NEEDED Status: Active Protocol: Document 11/17/21 11:48 KS (Rec: 11/17/21 13:05 KS [id number]) Subjective Physical Therapy Visit Type Type Treatment Note Visit Start Time 11:48 Visit Stop Time 12:06 Total Visit Minutes 18 Notes RN and GROUP ART SUPERVISOR present for assistance Number of INK TECHNICIAN Visits 3 Physical Therapy Visit Comments Patient Comments Pt agreeable to transfer to chair. Therapy Pain Assessment Pain When Pain Assessed During Mobility Pain Present Pain Present Pain Reported M4 PT-IP Mobility and Gait Start: 11/14/21 13:04 Freq: NEEDED Status: Active Protocol: Document 11/17/21 11:48 KS (Rec: 11/17/21 13:05 KS [id number]) PT-Bed Mobility Assessment Supine to Sit Supine to Sit Maximum Assistance,1 Person Assistance,Head of Bed Elevated,Bedrails Scooting Scooting to Edge of Bed Maximum Assistance PT-Transfer Assessment Sit to and From Stand Sit to and from Stand Maximum Assistance,1 Person Assistance,Use of Upper Extremities Equipment Transfer Assistive Device Gait Belt,Front Wheeled Walker Orthotic/Prosthetic Devices or Brace: No Transfers Transfer Destination Chair Transfer Ability Level of Assist Maximum Assistance,1 Person Assistance,2 Person Assistance ,Use of Upper Extremities Comments Mobility Comments Pt in bed upon arrival and agreeable to transfer to chair . Pt Max A for sup<>sit w/ HOB fully elevated and Max A for scooting to EOB. Pt sit>stand Max A w/ FWW and able to maintain standing balance ~2 minutes for cleaning and brief change. Pt then performed stand step pivot transfer to chair Max A x1-2 w/ step by step commands. Pt unable to lift L leg and must pivot/ slide foot and needs FWW management as well. Max A for slow descent. Pt left in chair w/ all needs in reach. Gait Assessment Gait Gait Assistance Required: Maximum Assistance,2 Person Assist Comments Gait Comments Stand step pivot only. PT-Balance Assessment Sitting Balance and Reactions Static Sitting Balance Ability Fair Dynamic Sitting Balance Ability Fair Standing Balance and Reactions Static Standing Balance Ability Fair Dynamic Standing Balance Ability Poor Device Used FWW M5 PT-IP Objective Assessments Start: 11/14/21 13:04 Freq: NEEDED Status: Active Protocol: Document 11/14/21 10:36 AB (Rec: 11/14/21 13:15 AB [id number]) Orientation Orientation/Cognition Level of Alertness Confusional State Orientation Name Safety Awareness Decreased Safety Awareness Memory Description Short Term Impaired Gross Range of Motion Lower Extremity ROM Impairments pt with increase LE guarding with PROM Strength Lower Extremity Strength Assessment Bilaterally Impaired Comments Strength Comments RLE: 3-/5 LLE:3-/5 Coordination Assessment Gross Coordination Gross Coordination WNL Sensation Assessment Sensation Gross Sensation Right LE Impaired,Left LE Impaired Sensation Description Numbness,Tingling Comments Sensation Comments has BLE neuropathy Muscle Tone Muscle Tone WNL Yes M6 PT-IP Treatment Start: 11/14/21 13:04 Freq: NEEDED Status: Active Protocol: Document 11/17/21 11:48 KS (Rec: 11/17/21 13:05 KS [id number]) Physical Therapy Treatment Education Education Provided Safety M7 PT-IP Assessment and Plan Start: 11/14/21 13:04 Freq: NEEDED Status: Active Protocol: Document 11/17/21 11:48 KS (Rec: 11/17/21 13:05 KS [id number]) PT Summary Assessment and Plan Potential Rehabilitation Potential Fair Summary Impairments Pain,ROM,Strength,Balance, Coordination,Sensation,Tone, Cognition,Bed Mobility, Transfers,Gait,Activity Tolerance Progress Towards Goals Slow Progress due to Pain,Slow Progress due to Activity Tolerance,Slow Progress - Other Assessment Summary Pt showed improvement w/ strnegth and mobility today, requiring mainly Max A x1 for bed mobility and transfer to chair. Able to maintain standing balance ~2 min w/ FWW . Required max verbal and tactile cues, step by step commands and FWW management during transfer. She will require SNF to improve strength and functional mobility. Goals Bed Mobility Goal Minimal Assistance Transfer Goal Minimal Assistance,Front Wheeled Walker Gait Goal Minimal Assistance,Front Wheel Walker Gait Distance 50 Other Goals improve bed mobility , transfers SBA using FWW improve ambulation using FWW 125 ft SBA Frequency of Treatment Frequency Of Treatment Twice a Day Treatment Plan Physical Therapy Treatment Plan Bed Mobility Training,Transfer Training,Gait Training, Therapeutic Exercise,Balance Retraining,Post Op Education, Discharge Planning,Hot or Cold Pack,Neuromuscular Re-ed, Coordination Retraining,Manual Therapy Weight Bearing Status Weight Bearing Status Weight Bear as Tolerated Allowed Weight Bearing Amount (enter % RLE WBAT or #) (%) Recommendations To Nursing Amount of Assist Needed Mechanical Lift Discharge Recommendations PT Discharge Recommendations SNF Rehab Equipment Needed for Home Before FWW if pt goes home Discharge Transportation Needs at Discharge Wheelchair/Cabulance
--- NOTE | 2021-11-17 16:05 | PT.IPTN ---
Current Diagnoses Fracture of unspecified part of neck of unspecified femur, initial encounter for closed fracture (11/13/21) Surgery Performed Operation Date: 11/13/21 15:45 Actual Procedures p IMN intertrochanter hip fx(Right) - Alberta Bonilla MD Physical Therapy Treatment Note M2 PT-IP Current Condition Start: 11/14/21 13:04 Freq: NEEDED Status: Active Protocol: Document 11/14/21 10:36 AB (Rec: 11/14/21 13:15 AB [id number]) Physical Therapy Current Condition Current Condition Evaluation Date 11/14/21 Treatment Diagnosis R femur fx s/p nailing; difficulty in walking Onset Date 11/13/21 M3 PT-IP Subjective Start: 11/14/21 13:04 Freq: NEEDED Status: Active Protocol: Document 11/17/21 15:01 KS (Rec: 11/17/21 16:35 KS [id number]) Subjective Physical Therapy Visit Type Type Treatment Note Visit Start Time 15:01 Visit Stop Time 16:05 Total Visit Minutes 38 Notes Splite treatment 15:01-15:15 15:41-16:05 RN and NEURO INTENSIVIST PHYSICIAN present for assistance Number of REDUCER Visits 4 Physical Therapy Visit Comments Patient Comments Pt requesting to get on BSC and then back to bed. Therapy Pain Assessment Pain When Pain Assessed During Mobility Pain Present Pain Present Pain Reported M4 PT-IP Mobility and Gait Start: 11/14/21 13:04 Freq: NEEDED Status: Active Protocol: Document 11/17/21 15:01 KS (Rec: 11/17/21 16:35 KS [id number]) PT-Bed Mobility Assessment Sit to Supine Sit to Supine Maximum Assistance,2 Person Assistance Scooting Scooting to Edge of Bed Maximum Assistance PT-Transfer Assessment Sit to and From Stand Sit to and from Stand Maximum Assistance,1 Person Assistance,Use of Upper Extremities Equipment Transfer Assistive Device Gait Belt,Front Wheeled Walker Orthotic/Prosthetic Devices or Brace: No Transfers Transfer Destination Bed,Bedside Commode Transfer Ability Level of Assist Maximum Assistance,1 Person Assistance,2 Person Assistance ,Use of Upper Extremities Comments Mobility Comments Pt wanting to use BSc upon arrival. Max A max cues for sit<>stand, Max A x2 for stand step pivot to chair w/ FWW w/ Max step by step cues. Pt left on BSC, arrived back to assist w/ transfer back to bed . Max A x2 and increased encouragement to participate. Pt continues to require Max A x2 for stand step pivot back to bed and requires increased time and encouragement as well as step by step commands for all tasks. Max A x2 for sit<> sup. Pt left in bed w/ SCDs on and all needs in reach. Gait Assessment Gait Gait Assistance Required: Maximum Assistance,2 Person Assist Comments Gait Comments Stand step pivot only. PT-Balance Assessment Sitting Balance and Reactions Static Sitting Balance Ability Fair Dynamic Sitting Balance Ability Fair Standing Balance and Reactions Static Standing Balance Ability Fair Dynamic Standing Balance Ability Poor Device Used FWW M5 PT-IP Objective Assessments Start: 11/14/21 13:04 Freq: NEEDED Status: Active Protocol: Document 11/14/21 10:36 AB (Rec: 11/14/21 13:15 AB [id number]) Orientation Orientation/Cognition Level of Alertness Confusional State Orientation Name Safety Awareness Decreased Safety Awareness Memory Description Short Term Impaired Gross Range of Motion Lower Extremity ROM Impairments pt with increase LE guarding with PROM Strength Lower Extremity Strength Assessment Bilaterally Impaired Comments Strength Comments RLE: 3-/5 LLE:3-/5 Coordination Assessment Gross Coordination Gross Coordination WNL Sensation Assessment Sensation Gross Sensation Right LE Impaired,Left LE Impaired Sensation Description Numbness,Tingling Comments Sensation Comments has BLE neuropathy Muscle Tone Muscle Tone WNL Yes M6 PT-IP Treatment Start: 11/14/21 13:04 Freq: NEEDED Status: Active Protocol: Document 11/17/21 15:01 KS (Rec: 11/17/21 16:35 KS [id number]) Physical Therapy Treatment Education Education Provided Safety Other Treatments Other Treatment Performed Continued to educate pt on importance of continued mobility/risks of immobility. M7 PT-IP Assessment and Plan Start: 11/14/21 13:04 Freq: NEEDED Status: Active Protocol: Document 11/17/21 15:01 KS (Rec: 11/17/21 16:35 KS [id number]) PT Summary Assessment and Plan Potential Rehabilitation Potential Fair Summary Impairments Pain,ROM,Strength,Balance, Coordination,Sensation,Tone, Cognition,Bed Mobility, Transfers,Gait,Activity Tolerance Progress Towards Goals Slow Progress due to Pain,Slow Progress due to Activity Tolerance,Slow Progress - Other Assessment Summary Pt able to tolerate to transfers this PM, but still requiring Max A x2, step by step verbal and tactile cues and constant encouragement. She is limited by low tolerance for activity and weakness as well as pain. She will require SNF to improve functional mobility. Goals Bed Mobility Goal Minimal Assistance Transfer Goal Minimal Assistance,Front Wheeled Walker Gait Goal Minimal Assistance,Front Wheel Walker Gait Distance 50 Other Goals improve bed mobility , transfers SBA using FWW improve ambulation using FWW 125 ft SBA Frequency of Treatment Frequency Of Treatment Twice a Day Treatment Plan Physical Therapy Treatment Plan Bed Mobility Training,Transfer Training,Gait Training, Therapeutic Exercise,Balance Retraining,Post Op Education, Discharge Planning,Hot or Cold Pack,Neuromuscular Re-ed, Coordination Retraining,Manual Therapy Weight Bearing Status Weight Bearing Status Weight Bear as Tolerated Allowed Weight Bearing Amount (enter % RLE WBAT or #) (%) Recommendations To Nursing Amount of Assist Needed Mechanical Lift Discharge Recommendations PT Discharge Recommendations SNF Rehab Equipment Needed for Home Before FWW if pt goes home Discharge Transportation Needs at Discharge Wheelchair/Cabulance
[2021-11-17] MEDS: ATORVASTATIN 20 MG TABLET 80 MG PO (20:47)
[2021-11-17] MEDS: SODIUM CHLORIDE 0.9% FLUSH 10 ML IV (20:54)
[2021-11-17] MEDS: INSULIN GLARGINE 100 UNIT/ML 3ML PEN 80 UNIT SUBCUT (22:32)
[2021-11-18] VITALS (7 sets, daily range): BP systolic 136–154; BP diastolic 75–97; PULSE 88–108; RESP 16; TEMP 36.4; O2SAT 92–96
[2021-11-18] MEDS: OXYCODONE IR 5 MG TABLET 10 MG PO ×2 (00:42→08:37)
[2021-11-18 05:16] LABS: Add Manual Diff / Slide Review NO; Basophils Absolute Auto 100 /uL (0-100); Basophils Percent Auto 1.2 % (0-2); Eosinophils Absolute Auto 300 /uL (0-450); Eosinophils Percent Auto 3.1 % (2-4); Hematocrit 29.8 % (36-46); Hemoglobin 9.6 g/dL (12.0-16.0); Lymphocytes Absolute Auto 2000 /uL (1100-4500); Lymphocytes Percent Auto 19.1 % (25-40); Mean Corpuscular HGB Conc 32.3 % (30-36); Mean Corpuscular Hemoglobin 25.5 PG (26-34); Mean Corpuscular Volume 79.2 fL (80-100); Monocytes Absolute Auto 1000 /uL (0-900); Monocytes Percent Auto 9.6 % (3-14); Neutrophils Absolute Auto 7000 /uL (1500-7000); Platelet Count 241 X10^3/uL (150-400); Red Blood Cell Count 3.77 X10^6/uL (4.0-5.2); White Blood Cell Count 10.4 X10^3/uL (4.5-11.0)
[2021-11-18 05:22] LABS: BUN Creatinine Ratio 29.5 (6-22); Blood Urea Nitrogen 23 mg/dL (7-17); Calcium 9.1 mg/dL (8.4-10.2); Carbon Dioxide 29 mmol/L (22-32); Chloride 103 mmol/L (98-107); Estimated Glomerular Filt Rate > 60.0 mL/min (>60); Glucose 207 mg/dL (80-110); HEMOLYSIS < 15 (0-50); Potassium 4.2 mmol/L (3.4-5.1); Sodium 137 mmol/L (137-145)
[2021-11-18] MEDS: dilTIAZem CD 120 MG CAP PO (08:33)
[2021-11-18] MEDS: DOCUSATE 100 MG CAPSULE PO (08:34)
[2021-11-18] MEDS: FLUoxetine 20 MG CAPSULE 40 MG PO (08:34)
[2021-11-18] MEDS: METOPROLOL ER 50 MG TABLET PO (08:35)
[2021-11-18] MEDS: ACETAMINOPHEN 325 MG TABLET 975 MG PO (08:36)
[2021-11-18] MEDS: polyethylene glycoL 3350 17 GM POWD.PACK PO (08:36)
[2021-11-18] MEDS: ENOXAPARIN 40 MG/0.4 ML SYRINGE SUBCUT (08:39)
[2021-11-18] MEDS: INSULIN LISPRO 100 UNIT/ML 3ML VIAL SUBCUT (08:43)
--- NOTE | 2021-11-18 09:37 | PT.IPTN ---
Current Diagnoses Fracture of unspecified part of neck of unspecified femur, initial encounter for closed fracture (11/13/21) Surgery Performed Operation Date: 11/13/21 15:45 Actual Procedures p IMN intertrochanter hip fx(Right) - Alberta Bonilla MD Physical Therapy Treatment Note M2 PT-IP Current Condition Start: 11/14/21 13:04 Freq: NEEDED Status: Discharge Protocol: Document 11/18/21 09:07 SP (Rec: 11/18/21 17:18 SP [id number]) Physical Therapy Current Condition Current Condition Evaluation Date 11/14/21 Treatment Diagnosis R femur fx s/p nailing; difficulty in walking Onset Date 11/13/21 M3 PT-IP Subjective Start: 11/14/21 13:04 Freq: NEEDED Status: Discharge Protocol: Document 11/18/21 09:07 SP (Rec: 11/18/21 17:18 SP [id number]) Subjective Physical Therapy Visit Type Type Treatment Note Visit Start Time 09:07 Visit Stop Time 09:37 Total Visit Minutes 30 Notes GRINDING WHEEL FACER provided 2nd person assist required. Number of HUMAN RESOURCE STATISTICIAN Visits 5 Physical Therapy Visit Comments Patient Comments Pt requesting to get on BSC and then to chair. Patient Goals Got to SNF get stronger before going home. Therapy Pain Assessment Pain When Pain Assessed During Mobility Pain Present Pain Present Pain Reported Location Right Hip Intensity 7 Scale Used Numeric (0 - 10) Description Aching,Sharp Pain Behaviors Facial Grimacing,Holding Area, Restlessness Pain Management Techniques Distraction,Modification of Treatment,Re-positioning, Timing of Activity with Medications M4 PT-IP Mobility and Gait Start: 11/14/21 13:04 Freq: NEEDED Status: Discharge Protocol: Document 11/18/21 09:07 SP (Rec: 11/18/21 17:18 SP [id number]) PT-Bed Mobility Assessment Supine to Sit Supine to Sit Moderate Assistance,1 Person Assistance,Head of Bed Elevated,Bedrails Scooting Scooting to Edge of Bed Moderate Assistance PT-Transfer Assessment Sit to and From Stand Sit to and from Stand Contact Guard Assistance, Maximum Assistance,2 Person Assistance,Use of Upper Extremities Equipment Transfer Assistive Device Gait Belt,Front Wheeled Walker Orthotic/Prosthetic Devices or Brace: No Transfers Transfer Destination Chair,Bedside Commode Transfer Technique Stand Step Pivot Transfer Ability Level of Assist Contact Guard Assistance, Maximum Assistance,2 Person Assistance,Use of Upper Extremities Comments Mobility Comments Instruction LE ex: quad set, glut set, AP pre mobililty. Pt reports urinating in brief, unable to control it. Mod A for supine>sit, support for RLE to EOB and scoot to EOB while pt used bed rail self support. SIt>Stand Max A x1, CGA by GRINDING WHEEL FACER, stand step pivot bed>BSC, cued LE and FWW sequencing and proper hand placement and slow descent to commode Max A x1. Pt required time for recovery, able to void unsuccessful BM. STS w/ fWW, Max A x1,2nd person assist pericare and brief support. SPT BCS> chair Max A x1, Mod A descent to chair. HUMAN RESOURCE STATISTICIAN elevated leg rests on recliner, provided pillow support. PHysican came in room end of tx. Pt had call light and all needs in reach, GRINDING WHEEL FACER donned chair alarm for safety due to fall risk. Gait Assessment Comments Gait Comments Stand step pivot only due to pain and RLE weakness,unsteady , heavy BUE WB on FWW, cued quad facilitation during RLE WB. Stair Climbing Assessment Comments Stair Climbing Comments not need to assess. PT-Balance Assessment Sitting Balance and Reactions Static Sitting Balance Ability Good Dynamic Sitting Balance Ability Fair Standing Balance and Reactions Static Standing Balance Ability Fair Dynamic Standing Balance Ability Poor Device Used FWW M5 PT-IP Objective Assessments Start: 11/14/21 13:04 Freq: NEEDED Status: Discharge Protocol: Document 11/14/21 10:36 AB (Rec: 11/14/21 13:15 AB [id number]) Orientation Orientation/Cognition Level of Alertness Confusional State Orientation Name Safety Awareness Decreased Safety Awareness Memory Description Short Term Impaired Gross Range of Motion Lower Extremity ROM Impairments pt with increase LE guarding with PROM Strength Lower Extremity Strength Assessment Bilaterally Impaired Comments Strength Comments RLE: 3-/5 LLE:3-/5 Coordination Assessment Gross Coordination Gross Coordination WNL Sensation Assessment Sensation Gross Sensation Right LE Impaired,Left LE Impaired Sensation Description Numbness,Tingling Comments Sensation Comments has BLE neuropathy Muscle Tone Muscle Tone WNL Yes M6 PT-IP Treatment Start: 11/14/21 13:04 Freq: NEEDED Status: Discharge Protocol: Document 11/18/21 09:07 SP (Rec: 11/18/21 17:18 SP [id number]) Physical Therapy Treatment Exercises Exercises Ankle Pumps,Gluteal Sets,Quad Sets Education Education Provided Safety Other Treatments Other Treatment Performed Continued to educate pt on importance of continued mobility/risks of immobility. M7 PT-IP Assessment and Plan Start: 11/14/21 13:04 Freq: NEEDED Status: Discharge Protocol: Document 11/18/21 09:07 SP (Rec: 11/18/21 17:18 SP [id number]) PT Summary Assessment and Plan Potential Rehabilitation Potential Fair Status of Condition at Evaluation Evolving Summary Impairments Pain,ROM,Strength,Balance, Coordination,Sensation,Tone, Cognition,Bed Mobility, Transfers,Gait,Activity Tolerance Progress Towards Goals Slow Progress due to Pain,Slow Progress due to Activity Tolerance,Slow Progress - Other Assessment Summary Pt takes time for slow mobililty, good self directioning to lesson pain, able to tolerate bed mobility Mod A x1 w/ bed rail, transfers Max A x1, pericare and brief mgt during use of BCS, unable to progress gait. Pt will require SNF for strengthening and functional independence progression. Goals Bed Mobility Goal Minimal Assistance Transfer Goal Minimal Assistance,Front Wheeled Walker Gait Goal Minimal Assistance,Front Wheel Walker Gait Distance 50 Other Goals improve bed mobility , transfers SBA using FWW improve ambulation using FWW 125 ft SBA Frequency of Treatment Frequency Of Treatment Twice a Day Treatment Plan Physical Therapy Treatment Plan Bed Mobility Training,Transfer Training,Gait Training, Therapeutic Exercise,Balance Retraining,Post Op Education, Discharge Planning,Hot or Cold Pack,Neuromuscular Re-ed, Coordination Retraining,Manual Therapy Other Recommendations and Next Treatment LE ex, bed mob, transfers, Focus gait when able. Weight Bearing Status Weight Bearing Status Weight Bear as Tolerated Allowed Weight Bearing Amount (enter % RLE WBAT or #) (%) Recommendations To Nursing Amount of Assist Needed 2 Person Assist Discharge Recommendations PT Discharge Recommendations SNF Rehab Equipment Needed for Home Before FWW if pt goes home Discharge Transportation Needs at Discharge Wheelchair/Cabulance
[2021-11-18 11:15] LABS: COVID19 - ADMIT (NP swab/PCR) Negative (Negative)
--- NOTE | 2021-11-18 12:17 | PC.NURSE ---
Pt is Ox3 slightly forgetful. She acknowledges discharge plan and activity. She needs lot of encouragement and cueing this a.m for transport but she is able stand with x2 assist with FWW.Dressing to R hip C/D/I. She refuses her lasix this a.m. stating her PCP prescribed it short term but not daily and she verbalizes frustration with having incontinence. She reports pain welll controlled with prn acetaminophen and oxycodone. CLYDE cuenca completed this am. and transporter arrived at 11 a.m. to transport patient via wheel chair.with all of her belongings including 2 suitcases laptop, purse and phone. Report called to [facility].
--- NOTE | 2021-11-18 12:37 | PM.PN.1 ---
Subjective Subjective Interval history: Patient denies any acute complaints this morning. She endorses good PO intake, and reports urinating and having BM's without difficulty. She is aware that she must continue doing good physical therapy work at the [facility], too. Exam Vital Signs (past 8 hours): - 11/18/21 06:00 11/18/21 07:48 11/18/21 08:00 Temperature 97.5 F L Pulse Rate 108 H Respiratory Rate 16 Blood Pressure 154/97 H Pulse Oximetry 92 96 93 11/18/21 08:35 11/18/21 10:00 Temperature Pulse Rate 108 H Respiratory Rate Blood Pressure 154/97 H Pulse Oximetry 93 Oxygen Delivery Method Room Air Oxygen Flow Rate 0 Narrative Exam Narrative: GENERAL APPEARANCE: sitting up in a chair upon my entering the room, working with PT/OT, and in no apparent acute distress LUNGS: clear to auscultation bilaterally CARDIOVASCULAR: regular rate and rhythm, without any murmurs appreciated ABDOMEN:? Soft, non-tender, non-distended, bowel sounds present MUSCULOSKELETAL:? Right hip appropriately tender, dressing clean, dry and intact. No joint effusions apparent. Objective Labs Result Diagrams: 11/18/21 04:40 11/18/21 04:40 Labs: Laboratory Results - last 24 hr 11/18/21 11/18/21 11/18/21 04:40 04:40 10:35 WBC 10.4 RBC 3.77 L Hgb 9.6 L Hct 29.8 L MCV 79.2 L MCH 25.5 L MCHC 32.3 RDW 16.0 H Plt Count 241 Neut % (Auto) 67.0 Lymph % (Auto) 19.1 L Barbour % (Auto) 9.6 Eos % (Auto) 3.1 Baso % (Auto) 1.2 Neut # (Auto) 7000 Lymph # (Auto) 2000 Barbour # (Auto) 1000 H Eos # (Auto) 300 Baso # (Auto) 100 Sodium 137 Potassium 4.2 Chloride 103 Carbon Dioxide 29 BUN 23 H Creatinine 0.78 Estimated GFR > 60.0 BUN/Creatinine Ratio 29.5 H Glucose 207 H Calcium 9.1 SARS-CoV-2 (PCR) Negative [facility] Medical History Hypertension Insulin dependent diabetes mellitus Neuropathy Surgical History Status post-operative repair of closed fracture of left hip Family History Brother Diabetes mellitus Mother Diabetes mellitus Social History marital status: details: Lives at home with who is 92 and requires nursing care. household members: spouse and other lives independently: Yes caregiver/support person: No Smoking Status: Never smoker alcohol intake: never substance use type: does not use Assessment & Plan Assessment & Plan narrative: 1. Pathologic right intertrochanteric femur fracture, acute, present on admission, status post ORIF on Nov 13, 2021 ?- appreciate orthopedic surgery consultation. S/p repair on 11/13/21 ?- PT / OT and pain control after surgery?- will need VTE prophylaxis with Lovenox for 4 weeks after surgery 2. Type 2 diabetes, chronic, with insulin use ?- initially increased lantus to 60 from 55. Glucose elevated over 300. Will increase lantus further to 80U, patient trying to get victoza ?- A1c 9%. Patient reports recently was 7.7%. ?- diabetic diet 3. History of tachyarrhythmia ?- restarted home metoprolol and diltiazem. 4. Hyperlipidemia ?- continue statin. 5. Chronic venous stasis 6. Obesity, BMI 43.3 ?- places patient at higher risk of surgical complications. 7. Elevated troponin level ?- likely elevated secondary to surgery, non-ischemic EKG, no chest pain. ?- troponin downtrended after initial elevation. No further interventions. Time Spent With Patient Critical Care time: I spent a total of [] minutes of critical care time on this patient's care today; this time is exclusive of procedural time. Quality VTE Deep Vein Thrombosis/Pulmonary Embolism Present on Admission: No
== END 2021-11-18 11:20 | DRG 481 ==
LOC: ED 08:44 → AC 08:46
PROVIDERS: Internal Medicine; Orthopaedic Surgery Foot and Ankle Surgery; Student in an Organized Health Care Education/Training Program; Admitting Provider Nurse Practitioner Family; Emergency Provider Emergency Medicine; Referring Provider Emergency Medicine; Visit Provider Nurse Practitioner Family
PROC: 0QS636Z Reposition Right Upper Femur with Intramedullary Internal Fixation Device, Percutaneous Approach (ICD-10-PCS; CPT 27245; principal; 2021-11-13 15:45)
DX: M84.451A Pathological fracture, right femur, initial encounter for fracture (principal); Z68.41 Body mass index [BMI] 40.0-44.9, adult; I47.1 Supraventricular tachycardia; I5A Non-ischemic myocardial injury (non-traumatic); E66.01 Morbid (severe) obesity due to excess calories; E78.5 Hyperlipidemia, unspecified; E11.65 Type 2 diabetes mellitus with hyperglycemia; I10 Essential (primary) hypertension; Z20.822 Contact with and (suspected) exposure to COVID-19; Z79.4 Long term (current) use of insulin; Z79.84 Long term (current) use of oral hypoglycemic drugs; W18.30XA Fall on same level, unspecified, initial encounter
CPT/HCPCS: 36415; 73502; 76000; 80048; 81001; 82962; 83036; 83735; 84443; 84484; 85025; 85610; 85730; 87635; 93005; 93010; 94760; 96374; 96376; 97162; 97530; 99284; C9803; J0171; J0690; J1650; J1815; J2060; J2270; J2704; J3010

== ENCOUNTER → 2024-07-11 | Outpatient (CLI) | payer MEDICARE, MEDICAID, SELFPAY ==
[2021-11-13 11:12] VITALS: BMI 43.3
--- NOTE | 2024-07-12 19:05 | DI.NM.S_ITS ---
DATE OF SERVICE: 07/12/2024 PROCEDURE: Pharmacological perfusion study. INDICATIONS: Chronic atrial fibrillation, diastolic heart failure, hypertension and hyperlipidemia, diabetes mellitus. RADIOPHARMACEUTICAL: 24.8 millicurie technetium-99m Myoview IV was injected at stress and 26.6 millicurie technetium-99m Myoview IV was injected at rest. CARDIAC STRESS: The patient underwent IV Lexiscan perfusion study under the supervision of an attending staff. The patient received IV Lexiscan as per standard protocol. The patient remained hemodynamically stable. Baseline rhythm, atrial fibrillation with nonspecific ST-T changes. During stress, the patient remained in AFib without any significant tachycardia or new ischemic changes. No chest pain. Resting blood pressure was 132/72. Heart rate 93 beats per minute. RAW DATA: There is a breast shadow seen. Increased subdiaphragmatic activity. The patient's weight is 250 pounds. GATED STUDY: Stress LV ejection fraction 56% without any obvious wall motion abnormalities. Resting end-diastolic volume 138 mL. TID ratio 1.01, which is within normal limits. Lung/heart ratio 0.29, which is within normal limits. MYOCARDIAL PERFUSION SCAN: Please note this patient does not have any prone images. Resting supine and stress supine images were compared to each other. There appears to be predominantly small size apical thinning with apical perfusion defect without any significant reversible ischemia. CONCLUSION: 1. There is no significant reversible ischemia. 2. Mild apical defect with apical thinning. The patient's weight is 250 pounds. Breast shadow seen. There is increased subdiaphragmatic activity near the apex as well. On raw images, no wall motion abnormalities; hence, most likely we are dealing with tissue attenuation artifact. Summed stress score and summed rest score is zero. Overall, low-risk myocardial perfusion scan. Naty Rm - DEA/jannie/RICKIE doc#: [id number]/job#: [id number] dd: 07/12/2024 16:59:00 dt: 07/12/2024 18:52:00 DICTATING MD/COPIES TO: Chidi Reyes MD COPIES MNE: NISHA;
== END ==
LOC: NUCM 12:05
PROVIDERS: Referring Provider Internal Medicine Cardiovascular Disease; Visit Provider Internal Medicine Cardiovascular Disease
DX: I48.20 Chronic atrial fibrillation, unspecified (principal); I50.32 Chronic diastolic (congestive) heart failure; I11.0 Hypertensive heart disease with heart failure; E78.5 Hyperlipidemia, unspecified; E11.9 Type 2 diabetes mellitus without complications
CPT/HCPCS: 78452; 93017; A9502; J2785

== ENCOUNTER → 2024-07-12 14:15 | Outpatient (CLI) | payer MEDICARE, MEDICAID, SELFPAY ==
[2021-11-13 11:12] VITALS: BMI 43.3
--- NOTE | 2024-07-12 14:17 | DI.US.S_ITS ---
PROCEDURE: US ARTERIAL DUPLEX LE BI INDICATIONS: PERIPHERAL ARTERIAL DISEASE TECHNIQUE: Color and pulse Doppler interrogation was performed of both lower extremity arterial systems, with image documentation. COMPARISON: None. FINDINGS: Right lower extremity: Common femoral artery: 124 cm/sec, with triphasic flow. Deep femoral artery: 101 cm/sec, with biphasic flow. Proximal superficial femoral artery: 112 cm/sec, with triphasic flow. Mid superficial femoral artery: 116 cm/sec, with triphasic flow. Distal superficial femoral artery: 67 cm/sec, with biphasic flow. Popliteal artery: 117 cm/sec, with biphasic flow. Posterior tibial artery: 139 cm/sec, with triphasic flow. Anterior tibial artery/dorsalis pedis: 64 cm/sec, with triphasic flow. Mcleod-scale imaging description: Moderate degree of scattered plaque involving mid to distal right common femoral artery. Mid to distal segment of the right SFA demonstrates mild plaque. Multifocal calcified plaque throughout right popliteal artery and anterior and posterior tibial arteries. Left lower extremity: Common femoral artery: 228 cm/sec, with triphasic flow. Deep femoral artery: 103 cm/sec, with biphasic flow. Proximal superficial femoral artery: 172 cm/sec, with triphasic flow. Mid superficial femoral artery: 160 cm/sec, with triphasic flow. Distal superficial femoral artery: 166 cm/sec, with triphasic flow. Popliteal artery: 157 cm/sec, with triphasic flow. Posterior tibial artery: 105 cm/sec, with triphasic flow. Anterior tibial artery/dorsalis pedis: 141 cm/sec, with triphasic flow. Mcleod-scale imaging description: [id number]-lyycblut multifocal calcified plaque throughout the left common femoral artery and SFA in the upper thigh. Mild degree of scattered calcified plaque throughout the anterior and posterior tibial arteries of the lower leg. IMPRESSION: 1. Elevated velocity involving the distal left common femoral artery associated with calcified plaque at this level suggestive of 20-49% stenosis. 2. Mild degree of calcified and noncalcified plaque throughout both lower extremity arterial systems without significant stenosis. Dictated by: Erlin Quarles M.D. on 07/12/2024 at 16:32 Approved by: Erlin Quarles M.D. on 07/12/2024 at 16:37
== END ==
PROVIDERS: Referring Provider Internal Medicine Cardiovascular Disease; Visit Provider Internal Medicine Cardiovascular Disease
DX: I73.9 Peripheral vascular disease, unspecified (principal)
CPT/HCPCS: 93925